=== PATIENT | female | born 1965 | race Caucasian/White ===

== ENCOUNTER 2020-05-09 13:00 | Outpatient (RCR) | payer OTHER, SELFPAY ==
--- NOTE | 2020-03-28 14:39 | MHC.PT.EP ---
[facility] [place] Office [place] Office [place] Office [address] [phone] F: [phone] F: [phone] F: [phone] F: [phone] Physical Therapy Plan of Care Date of Evaluation: 03/28/20 Date of Surgery: 12/07/2019 Diagnosis: This is a 54 yo female presenting to skilled PT with a script for low back pain Assessment: This is a 54 yo female presenting to skilled PT with a script for low back pain. She reports that she has a long history of chronic back pain and hx of scoliosis. Based on MD note and patient report she wanted a referral to PT to learn core stability exercises for mild low back pain and obesity s/p surgery for hysterectomy on december 06. When present her back pain is located R side low back and can run down the lateral aspect of the R hip. She describes her pain as achy. Functionally she is limited in bending forward and SLS. She has ordered a treadmill but has not used it yet but enjoys walking the dogs for short distances. Assessment reveals pain that ranges from a 2 to 6/10. She demos decreased lumbar ROM and joint mobility, decreased BLE strength and core strength, general posture and impaired functional tolerance with SLS and lumbar flexion. Her main goal is to improve core strength and possibly lose weight. She is a good candidate based on age, functional limitations and PMHx. Will begin HEP next session as she was over 30 mins late to [facility]. Frequency and Duration: The patient will be seen 2x/wk for 5wks Short Term Goals: I in HEP Patient will demo proper core stab without cuing from PT Halfway Goals: Patient will demo proper squatting and lifting techniques without pain Patient will improve Oswestry to normal Patient will demo normal lumbar ROM without pain Patient will demo normal BLE strength Treatment Plan: Modalities to reduce pain, spasms and effusion. Manual therapy to restore motion and function. Therapeutic exercise to improve strength and flexibility. Neuromuscular re-education for posture and balance. Therapeutic activities to return to functional activities of daily living. Please sign and return to therapist. Thank you for your referral.
--- NOTE | 2020-05-18 10:27 | MHC.PT.DC ---
[facility] [place] Office [place] Office [place] Office [address] Thong Helms [address] [phone] F: [phone] F: [phone] F: [phone] F: [phone] Physical Therapy Discharge Report Diagnosis: This is a 54 yo female presenting to skilled PT with a script for low back pain Date of Surgery: 12/07/2019 Date of Evaluation: 03/28/20 Date of Discharge: 05/18/20 Treatments to Date: 11 Cancellations to Date: 0 No Shows to Date: 0 Discharge Status: Achieved Goals Improved Function Independent with HEP Discharge Summary: Patient is I in her program. Demos good ROM and does not report pain with ther-ex program while at PT clinic. In general reports poor compliance with exercising at home but was educated on importance of self management especially for her weight loss goals. She is getting a treadmill for home and has a good HEP at this time. DC to HEP. Oswestry score was a 4. Electronically signed by: Brunilda Keene PT Please sign and return to therapist. Thank you for your referral.
== END 2020-05-18 10:29 | disposition home or self-care (01) ==
LOC: HO.PTCHIC 13:00
PROVIDERS: PCP Internal Medicine; Visit Provider Internal Medicine
DX: M54.5 Low back pain (principal)
CPT/HCPCS: 97110; 97161

== ENCOUNTER 2020-12-23 14:05 | Outpatient (REF) | payer OTHER, SELFPAY ==
[2020-12-23 14:32] LABS: MANUAL DIFF FLAG NO
[2020-12-23 14:35] LABS: Basophils Absolute Auto 0.1 X10*3/uL (0.0-0.2); Basophils Percent Auto 0.8 % (0-2); Eosinophils Absolute Auto 0.3 X10*3/uL (0.0-0.4); Eosinophils Percent Auto 3.7 % (0-4); Hematocrit 42.6 % (37-47); Hemoglobin 14.1 g/dl (12.0-16.0); Imm Gran Abs Auto 0.02 X10*3/uL (0.00-0.03); Imm Gran Pct Auto 0.3 % (0.0-0.4); Lymphocytes Absolute Auto 2.4 X10*3/uL (1.2-4.9); Lymphocytes Percent Auto 32.7 % (20-40); Mean Corpuscular HGB Conc 33.1 g/dl (31.0-35.0); Mean Corpuscular Hemoglobin 33.5 pg (27.0-33.0); Mean Corpuscular Volume 101.2 fL (80-98); Mean Platelet Volume 9.3 fL (9.4-12.3); Monocytes Absolute Auto 0.6 X10*3/uL (0.1-1.2); Monocytes Percent Auto 7.5 % (2-11); Neutrophils Absolute Auto 4.1 X10*3/uL (2.0-8.3); Platelet Count 380 X10*3/uL (160-400); Red Blood Count 4.21 X10*6/uL (4.20-5.50); Red Cell Distribution Width 12.5 % (11.0-16.0); White Blood Count 7.4 X10*3/uL (4.8-10.8)
[2020-12-23 14:58] LABS: Lithium 0.98 mmol/L (0.60-1.20)
[2020-12-23 15:03] LABS: Alanine Aminotransferase 61 U/L (0-31); Albumin Level 4.2 g/dL (3.5-5.0); Alkaline Phosphatase 73 U/L (39-117); Anion Gap 11 (12-20); Aspartate Amino Transferase 36 U/L (5-31); Bilirubin Total 0.5 mg/dL (0.0-1.0); Blood Urea Nitrogen 11 mg/dL (9-16); Calcium 9.8 mg/dL (8.4-10.2); Carbon Dioxide 26 mmol/L (22-29); Chloride 107 mmol/L (96-108); Cholesterol 196 mg/dL; Estimated Glomerular Filt Rate > 60; Glucose Fasting 96 mg/dL (60-99); HDL Cholesterol 59 mg/dL; LDL Cholesterol Calculated 114 mg/dl; Potassium 4.9 mmol/L (3.3-5.1); Sodium 139 mmol/L (135-145); Total Protein 6.7 g/dL (6.5-8.0); Triglycerides 115 mg/dL
[2020-12-23 15:23] LABS: Free T4 (Free Thyroxine) 0.87 ng/dL (0.71-1.85); Thyroid Stimulating Hormone 1.97 uIU/mL (0.32-4.0)
[2020-12-28 07:02] LABS: Lamotrigine Lamictal 2.6 mcg/mL (4.0-18.0)
== END 2020-12-23 14:06 | disposition home or self-care (01) ==
LOC: HO.LAB 14:05
PROVIDERS: Absent Provider Psychiatry & Neurology Psychiatry; PCP Internal Medicine; Visit Provider Internal Medicine
DX: E66.9 Obesity, unspecified (principal); B35.3 Tinea pedis; F31.9 Bipolar disorder, unspecified; Z51.81 Encounter for therapeutic drug level monitoring; Z79.899 Other long term (current) drug therapy
CPT/HCPCS: 36415; 80053; 80061; 80175; 80178; 84439; 84443; 85025

== ENCOUNTER 2021-01-23 14:05 | Outpatient (REF) | payer OTHER, SELFPAY ==
[2021-01-23 16:52] LABS: Alanine Aminotransferase 55 U/L (0-31); Albumin Level 4.2 g/dL (3.5-5.0); Alkaline Phosphatase 72 U/L (39-117); Aspartate Amino Transferase 29 U/L (5-31); Bilirubin Direct 0.2 mg/dL (0.0-0.5); Bilirubin Total 0.4 mg/dL (0.0-1.0); Total Protein 6.6 g/dL (6.5-8.0)
== END 2021-01-23 14:06 | disposition home or self-care (01) ==
LOC: HO.HMGCLDS 14:05
PROVIDERS: PCP Internal Medicine; Visit Provider Internal Medicine
DX: R79.89 Other specified abnormal findings of blood chemistry (principal); B35.3 Tinea pedis; E66.9 Obesity, unspecified
CPT/HCPCS: 36415; 80076; 84439; 84443

== ENCOUNTER 2021-02-27 13:31 | Outpatient (REF) | payer OTHER, SELFPAY ==
--- NOTE | ~2021-02-27 | MM_ITS ---
EXAMINATION: MM SCREENING DIGITAL BREAST TOMOSYNTHESIS, BILATERAL CLINICAL INFORMATION: Screening. Asymptomatic. The lifetime risk of breast cancer based on the Tyrer-Cuzick Model is 11%. COMPARISON: Mammography: 09/02/2018 (new baseline) TECHNIQUE: Digital breast tomosynthesis is performed in both the craniocaudal and mediolateral oblique views along with computer-aided detection (CAD). Synthesized 2D images are generated from the tomosynthesis. FINDINGS: The breasts are heterogeneously dense, which may obscure small masses (ACR BI-RADS breast composition Category c). There is diffuse fine fibronodular parenchymal pattern similar to prior exam. There is no developing density or interval mass or architectural abnormality. No abnormal calcifications. Again, there are bilateral accessory stromal markings in the axilla. Skin contours are smooth. There are no significant changes. MM/MM tomosynthesis screening BI IMPRESSION: No significant changes from prior exam. ASSESSMENT: BI-RADS 2: Benign RECOMMENDATION: Routine annual mammography screening. This patient's information was entered into a reminder system with a target due date for their next mammogram.
== END 2021-02-27 13:32 | disposition home or self-care (01) ==
LOC: HO.MAMMO 13:31
PROVIDERS: Visit Provider Internal Medicine
DX: Z12.31 Encounter for screening mammogram for malignant neoplasm of breast (principal)
CPT/HCPCS: 77063; 77067

== ENCOUNTER → 2021-04-07 09:39 | Outpatient (BNVA) | payer OTHER, SELFPAY | PROVIDERS: PCP Internal Medicine; Referring Provider Internal Medicine; Visit Provider Internal Medicine Gastroenterology | DX: R79.89 Other specified abnormal findings of blood chemistry (principal) | CPT/HCPCS: 99212 ==

== ENCOUNTER 2021-04-11 15:11 | Outpatient (REF) | payer OTHER, SELFPAY ==
[2021-04-11 16:25] LABS: MANUAL DIFF FLAG NO
[2021-04-11 16:31] LABS: Basophils Percent Auto 0.3 % (0-2); Eosinophils Absolute Auto 0.1 X10*3/uL (0.0-0.4); Eosinophils Percent Auto 0.9 % (0-4); Hematocrit 38.9 % (37.0-47.0); Hemoglobin 12.9 g/dl (12.0-16.0); Imm Gran Abs Auto 0.05 X10*3/uL (0.00-0.03); Imm Gran Pct Auto 0.4 % (0.0-0.4); Lymphocytes Absolute Auto 2.4 X10*3/uL (1.2-4.9); Mean Corpuscular HGB Conc 33.2 g/dl (31.0-35.0); Mean Corpuscular Hemoglobin 31.8 pg (27.0-33.0); Mean Corpuscular Volume 95.8 fL (80.0-98.0); Mean Platelet Volume 10.1 fL (9.4-12.3); Monocytes Absolute Auto 0.8 X10*3/uL (0.1-1.2); Monocytes Percent Auto 6.3 % (2-11); Neutrophils Absolute Auto 8.8 x10*3/uL (2.0-8.3); Neutrophils Percent Auto 72.1 % (45-73); Platelet Count 448 X10*3/uL (160-400); Red Blood Count 4.06 X10*6/uL (4.20-5.50); Red Cell Distribution Width 12.2 % (11.0-16.0); White Blood Count 12.2 X10*3/uL (4.8-10.8)
[2021-04-11 16:54] LABS: Alanine Aminotransferase 22 U/L (0-31); Alkaline Phosphatase 66 U/L (39-117); Anion Gap 12 (12-20); Aspartate Amino Transferase 15 U/L (5-31); Bilirubin Total 0.5 mg/dL (0.0-1.0); Blood Urea Nitrogen 11 mg/dL (9-16); C Reactive Protein 1.46 mg/dL (< or = 0.50); Calcium 10.1 mg/dL (8.4-10.2); Carbon Dioxide 24 mmol/L (22-29); Chloride 107 mmol/L (96-108); Estimated Glomerular Filt Rate > 60; Glucose Random 94 mg/dL (60-115); Potassium 4.9 mmol/L (3.3-5.1); Sodium 138 mmol/L (135-145); Total Protein 6.7 g/dL (6.5-8.0)
[2021-04-11 17:10] LABS: TSH reflex Free T4 2.35 uIU/mL (0.32-4.0)
[2021-04-11 17:18] LABS: Ferritin 107 ng/mL (10-250)
[2021-04-11 17:33] LABS: Folate > 20.0 ng/mL (> or = 4.0); Vitamin B12 428 pg/mL (200-900)
[2021-04-16 10:52] LABS: Gliadin Deamidated IgA Ab 1.1 U/mL; Gliadin Deamidated IgG Ab <1.0 U/mL; Transglutaminase Ab IgG <1.0 U/mL; Transglutaminase IgA <1.0 U/mL
== END 2021-04-11 15:12 | disposition home or self-care (01) ==
LOC: HO.HMGCLDS 15:11
PROVIDERS: Internal Medicine Gastroenterology; PCP Internal Medicine; Visit Provider Internal Medicine
DX: R79.89 Other specified abnormal findings of blood chemistry (principal); G89.29 Other chronic pain; R10.33 Periumbilical pain; K75.81 Nonalcoholic steatohepatitis (NASH)
CPT/HCPCS: 36415; 80053; 82607; 82728; 82746; 83516; 84443; 85025; 86140

== ENCOUNTER 2021-05-04 11:10 | Outpatient (REF) | payer OTHER, SELFPAY ==
--- NOTE | ~2021-05-04 | XR_ITS ---
EXAMINATION: XR LUMBOSACRAL SPINE CLINICAL INFORMATION: Low back pain longer than 6 months COMPARISON: None TECHNIQUE: Four views of the lumbosacral spine. FINDINGS: 5 nonrib-bearing lumbar-type vertebral bodies. No acute visible fracture or dislocation. Moderate multilevel degenerative changes greatest at L4-L5 with endplate sclerosis, disc space narrowing, osteophyte formation, and facet arthropathy. Vertebral body heights and disc spaces are otherwise maintained. Posterior elements are intact. Paraspinal soft tissues are unremarkable. Visualized bowel gas is unremarkable. Multiple rounded calcifications in the right upper quadrant abdomen possibly representing gallbladder calculi. XR/XR lumbar spine 2-3V IMPRESSION: 1. No acute visible fracture or dislocation. 2. Moderate multilevel degenerative changes greatest at L4-L5. 3. Multiple rounded calcifications in the right upper quadrant abdomen possibly representing gallbladder calculi.
== END 2021-05-04 11:11 | disposition home or self-care (01) ==
LOC: HO.XRAY 11:10
PROVIDERS: PCP Internal Medicine; Visit Provider Chiropractor
DX: M54.50 Low back pain, unspecified (principal)
CPT/HCPCS: 72100

== ENCOUNTER 2021-05-29 10:41 | Outpatient (REF) | payer OTHER, SELFPAY ==
--- NOTE | ~2021-05-29 | US_ITS ---
EXAMINATION: US COMPLETE ABDOMEN WITH LIVER ELASTOGRAPHY CLINICAL INFORMATION: Abnormal liver function tests. COMPARISON: None. TECHNIQUE: Real-time imaging of the abdominal viscera. Noninvasive ultrasound liver fibrosis assessment is performed using Hipolito ElastPQ point quantification shear wave elastography (2D-SWE) with a C5-2 MHz transducer. Multiple elastography samples are obtained. FINDINGS: PANCREAS: The visualized pancreatic head and body are normal in appearance. The tail of the pancreas is obscured from visualization by the overlying bowel gas. ABDOMINAL AORTA: The proximal, middle, and distal aortic segments are normal in caliber. INFERIOR VENA CAVA: Visualized portions are normal. LIVER: The liver demonstrates an enlarged size, contour and increased echogenicity. No focal lesion or intrahepatic biliary duct dilatation. The right lobe measures 18.0 cm in length. The left lobe measures 14.0 cm in length. Portal flow is hepatopedal Shear wave liver elastography median stiffness is 1.27 m/s (reference: normal median stiffness is 1.3 m/s or less). IQR/median stiffness to assess sampling precision is 0.24 (reference: good quality data set is IQR/median stiffness of 0.15 or less). GALLBLADDER: There are multiple echogenic mobile gallstones. No gallbladder wall thickening seen. Gallbladder wall thickness measures 0.2 cm. COMMON BILE DUCT: Normal in caliber measuring 0.4 cm in diameter. RIGHT KIDNEY: Normal. No hydronephrosis. No renal calculi or focal parenchymal lesions. The kidney measures 11.0 cm in maximum dimension. LEFT KIDNEY: Normal. No hydronephrosis. No renal calculi or focal parenchymal lesions. The kidney measures 12.0 cm in maximum dimension. SPLEEN: Normal. The spleen measures 10.0 cm in maximum dimension. FREE FLUID: None. US/US abdomen comp w elastography IMPRESSION: 1. Cholelithiasis without wall thickening. 2. Hepatic steatosis with mild hepatomegaly. 3. The rest of the abdominal ultrasound is unremarkable. 4. Liver elastography: Median liver stiffness 1.27 m/s suggestive of high probability for normal. REFERENCE: Society of Radiologists in Ultrasound Liver Stiffness Thresholds (2019): LIVER STIFFNESS THRESHOLDS: *Liver Stiffness equal or less than 1.3 m/s: High probability of being normal. *Liver Stiffness less than 1.7 m/s: In the absence of other known clinical signs, rules out compensated advanced chronic liver disease. *Liver Stiffness 1.7-2.1 m/s: Suggestive of compensated advanced chronic liver disease but need further test for confirmation. *Liver Stiffness over 2.1 m/s: Rules in compensated advanced chronic liver disease. *Liver Stiffness over 2.4 m/s: Suggestive of clinically significant portal hypertension. QUALITY OF DATA SET: *IQR/Median value equal or less than 0.15 implies a quality data set. *IQR/Median value over 0.15 implies a poor quality data set. SIGNIFICANT CHANGE FROM PRIOR EXAM: Significant change if liver stiffness measurement is 10% or greater from prior exam. OTHER CONSIDERATIONS: The stage of liver fibrosis may be overestimated in the setting of acute hepatitis, liver inflammation, elevated liver function tests, hepatic vascular congestion, obstructive cholestasis, non-fasting state, and infiltrative diseases such as amyloidosis and lymphoma. In some patients with NAFLD, the liver stiffness thresholds for compensated advanced chronic liver disease may be lower. In causes other than viral hepatitis and NAFLD, liver stiffness thresholds are not well established.
[2021-05-29 11:29] LABS: MANUAL DIFF FLAG NO
[2021-05-29 11:48] LABS: Basophils Absolute Auto 0.1 X10*3/uL (0.0-0.2); Basophils Percent Auto 0.7 % (0-2); Eosinophils Absolute Auto 0.3 X10*3/uL (0.0-0.4); Eosinophils Percent Auto 3.3 % (0-4); Hematocrit 40.9 % (37.0-47.0); Hemoglobin 13.2 g/dl (12.0-16.0); Imm Gran Abs Auto 0.03 X10*3/uL (0.00-0.03); Imm Gran Pct Auto 0.4 % (0.0-0.4); Lymphocytes Absolute Auto 2.5 X10*3/uL (1.2-4.9); Lymphocytes Percent Auto 31.9 % (20-40); Mean Corpuscular HGB Conc 32.3 g/dl (31.0-35.0); Mean Corpuscular Hemoglobin 31.2 pg (27.0-33.0); Mean Corpuscular Volume 96.7 fL (80.0-98.0); Mean Platelet Volume 9.6 fL (9.4-12.3); Monocytes Absolute Auto 0.5 X10*3/uL (0.1-1.2); Neutrophils Absolute Auto 4.4 x10*3/uL (2.0-8.3); Neutrophils Percent Auto 56.7 % (45-73); Platelet Count 385 X10*3/uL (160-400); Red Blood Count 4.23 X10*6/uL (4.20-5.50); Red Cell Distribution Width 12.2 % (11.0-16.0); White Blood Count 7.7 X10*3/uL (4.8-10.8)
[2021-05-29 12:31] LABS: Thyroid Stimulating Hormone 2.95 uIU/mL (0.32-4.0)
[2021-05-29 12:33] LABS: Alanine Aminotransferase 14 U/L (0-31); Albumin Level 4.2 g/dL (3.5-5.0); Alkaline Phosphatase 59 U/L (39-117); Aspartate Amino Transferase 14 U/L (5-31); Bilirubin Direct 0.2 mg/dL (0.0-0.5); Bilirubin Total 0.6 mg/dL (0.0-1.0); Calcium 9.9 mg/dL (8.4-10.2); Total Protein 6.6 g/dL (6.5-8.0)
[2021-05-29 12:45] LABS: Folate > 20.0 ng/mL (> or = 4.0); Vitamin B12 514 pg/mL (200-900)
[2021-06-05 06:57] LABS: Lamotrigine Lamictal 3.2 mcg/mL (4.0-18.0)
== END 2021-05-29 10:42 | disposition home or self-care (01) ==
LOC: HO.US 10:41
PROVIDERS: Psychiatry & Neurology Psychiatry; PCP Internal Medicine; Visit Provider Internal Medicine Gastroenterology
DX: R79.89 Other specified abnormal findings of blood chemistry (principal)
CPT/HCPCS: 36415; 76705; 76981; 80076; 80175; 80178; 82310; 82607; 82746; 84443; 85025

== ENCOUNTER → 2021-07-10 13:18 | Outpatient (BNVA) | payer OTHER, SELFPAY | PROVIDERS: PCP Internal Medicine; Visit Provider Internal Medicine Gastroenterology | DX: Z13.89 Encounter for screening for other disorder (principal) ==

== ENCOUNTER 2022-01-02 13:58 | Outpatient (REF) | payer OTHER, SELFPAY ==
--- NOTE | ~2022-01-02 | XR_ITS ---
EXAMINATION: XR CERVICAL SPINE SERIES XR DORSAL SPINE SERIES CLINICAL INFORMATION: Upper back pain. COMPARISON: None. TECHNIQUE: 3 views of the cervical spine. 4 views of the dorsal spine. FINDINGS: Cervical Spine: The vertebral bodies are normally aligned with normal height. Disc spaces normal. Facets normal. Surrounding bone and soft tissues unremarkable. Dorsal Spine: There is a convex right curvature/scoliosis of the dorsal spine measured at 20 degrees between T5 and T10 Vertebral bodies otherwise normally aligned. Minimal endplate osteophytes in the midportion of the dorsal spine compatible with mild multilevel spondylosis. No fracture or bone lesion. Surrounding soft tissues unremarkable. XR/XR thoracic spine 3V IMPRESSION: CERVICAL SPINE: Normal. DORSAL SPINE: Mild scoliosis. Mild spondylosis.
--- NOTE | ~2022-01-02 | XR_ITS ---
EXAMINATION: XR CERVICAL SPINE SERIES XR DORSAL SPINE SERIES CLINICAL INFORMATION: Upper back pain. COMPARISON: None. TECHNIQUE: 3 views of the cervical spine. 4 views of the dorsal spine. FINDINGS: Cervical Spine: The vertebral bodies are normally aligned with normal height. Disc spaces normal. Facets normal. Surrounding bone and soft tissues unremarkable. Dorsal Spine: There is a convex right curvature/scoliosis of the dorsal spine measured at 20 degrees between T5 and T10 Vertebral bodies otherwise normally aligned. Minimal endplate osteophytes in the midportion of the dorsal spine compatible with mild multilevel spondylosis. No fracture or bone lesion. Surrounding soft tissues unremarkable. XR/XR cervical spine 3V IMPRESSION: CERVICAL SPINE: Normal. DORSAL SPINE: Mild scoliosis. Mild spondylosis.
== END 2022-01-02 13:59 | disposition home or self-care (01) ==
LOC: HO.XRAY 13:58
PROVIDERS: Visit Provider Chiropractor
DX: M54.2 Cervicalgia (principal); M54.6 Pain in thoracic spine
CPT/HCPCS: 72040; 72072

== ENCOUNTER 2022-03-09 14:09 | Outpatient (REF) | payer OTHER, SELFPAY ==
--- NOTE | ~2022-03-09 | MM_ITS ---
EXAMINATION: MM SCREENING DIGITAL BREAST TOMOSYNTHESIS, BILATERAL CLINICAL INFORMATION: Screening. Asymptomatic. The lifetime risk of breast cancer based on the Tyrer-Cuzick Model is 9%. COMPARISON: Mammography: 02/27/2021, 09/02/2018 (new baseline) TECHNIQUE: Digital breast tomosynthesis is performed in both the craniocaudal and mediolateral oblique views along with computer-aided detection (CAD). Synthesized 2D images are generated from the tomosynthesis. FINDINGS: There are scattered areas of fibroglandular density (ACR BI-RADS breast composition Category b). Fibronodular parenchymal pattern is similar to prior studies. No significant mass or interval architectural abnormality or developing density or abnormal calcifications. The axilla and skin contours are unremarkable. No significant changes from prior studies. MM/MM tomosynthesis screening BI IMPRESSION: No mammographic evidence of malignancy. ASSESSMENT: BI-RADS 1: Negative RECOMMENDATION: Routine annual mammography screening. This patient's information was entered into a reminder system with a target due date for their next mammogram.
== END 2022-03-09 14:10 | disposition home or self-care (01) ==
LOC: HO.MAMMO 14:09
PROVIDERS: PCP Internal Medicine; Visit Provider Internal Medicine
DX: Z12.31 Encounter for screening mammogram for malignant neoplasm of breast (principal)
CPT/HCPCS: 77063; 77067

== ENCOUNTER → 2022-05-01 14:30 | Outpatient (BNVA) | payer OTHER, SELFPAY | PROVIDERS: Visit Provider Psychiatry & Neurology Psychiatry | DX: F31.74 Bipolar disorder, in full remission, most recent episode manic (principal) | CPT/HCPCS: 90833; 99212 ==

== ENCOUNTER 2022-05-23 11:22 | Outpatient (REF) | payer OTHER, SELFPAY ==
[2022-05-23 14:17] LABS: MANUAL DIFF FLAG NO
[2022-05-23 14:26] LABS: Basophils Absolute Auto 0.1 X10*3/uL (0.0-0.2); Eosinophils Absolute Auto 0.3 X10*3/uL (0.0-0.4); Eosinophils Percent Auto 3.1 % (0-4); Hematocrit 41.5 % (37.0-47.0); Hemoglobin 13.6 g/dl (12.0-16.0); Imm Gran Abs Auto 0.03 X10*3/uL (0.00-0.03); Imm Gran Pct Auto 0.3 % (0.0-0.4); Lymphocytes Absolute Auto 2.9 X10*3/uL (1.2-4.9); Lymphocytes Percent Auto 30.9 % (20-40); Mean Corpuscular HGB Conc 32.8 g/dl (31.0-35.0); Mean Corpuscular Hemoglobin 31.4 pg (27.0-33.0); Mean Corpuscular Volume 95.8 fL (80.0-98.0); Mean Platelet Volume 9.6 fL (9.4-12.3); Monocytes Absolute Auto 0.7 X10*3/uL (0.1-1.2); Monocytes Percent Auto 7.4 % (2-11); Neutrophils Absolute Auto 5.4 x10*3/uL (2.0-8.3); Neutrophils Percent Auto 57.3 % (45-73); Platelet Count 436 X10*3/uL (160-400); Red Blood Count 4.33 X10*6/uL (4.20-5.50); Red Cell Distribution Width 12.2 % (11.0-16.0); White Blood Count 9.5 X10*3/uL (4.8-10.8)
[2022-05-23 14:48] LABS: Lithium 0.83 mmol/L (0.60-1.20)
[2022-05-23 15:23] LABS: Alanine Aminotransferase 17 U/L (0-31); Albumin Level 4.2 g/dL (3.5-5.0); Alkaline Phosphatase 64 U/L (39-117); Aspartate Amino Transferase 15 U/L (5-31); Bilirubin Total 0.6 mg/dL (0.0-1.0); Blood Urea Nitrogen 12 mg/dL (9-16); Calcium 9.5 mg/dL (8.4-10.2); Cholesterol 224 mg/dL; Estimated Glomerular Filt Rate > 60; Glucose Fasting 92 mg/dL (60-99); HDL Cholesterol 53 mg/dL; LDL Cholesterol Calculated 152 mg/dl; TSH reflex Free T4 2.06 uIU/mL (0.32-4.0); Total Protein 6.5 g/dL (6.5-8.0); Triglycerides 95 mg/dL
[2022-05-23 15:50] LABS: Anion Gap 10 (12-20); Carbon Dioxide 24 mmol/L (22-29); Chloride 110 mmol/L (96-108); Potassium 4.6 mmol/L (3.3-5.1); Sodium 139 mmol/L (135-145)
[2022-05-28 21:44] LABS: Lamotrigine Lamictal 3.4 mcg/mL (4.0-18.0)
== END 2022-05-23 11:23 | disposition home or self-care (01) ==
LOC: HO.HMGCLDS 11:22
PROVIDERS: Absent Provider Psychiatry & Neurology Psychiatry; PCP Internal Medicine; Visit Provider Internal Medicine
DX: Z00.01 Encounter for general adult medical examination with abnormal findings (principal); E66.09 Other obesity due to excess calories; R79.89 Other specified abnormal findings of blood chemistry; F31.74 Bipolar disorder, in full remission, most recent episode manic
CPT/HCPCS: 36415; 80053; 80061; 80175; 80178; 84443; 85025

== ENCOUNTER → 2022-06-22 12:10 | Outpatient (BNVA) | payer OTHER, SELFPAY | PROVIDERS: PCP Internal Medicine; Visit Provider Internal Medicine Gastroenterology | DX: R79.89 Other specified abnormal findings of blood chemistry (principal); K80.20 Calculus of gallbladder without cholecystitis without obstruction; F10.90 Alcohol use, unspecified, uncomplicated | CPT/HCPCS: 99212 ==

== ENCOUNTER → 2022-09-19 17:05 | Outpatient (BNVA) | payer OTHER, SELFPAY | PROVIDERS: PCP Internal Medicine; Visit Provider Psychiatry & Neurology Psychiatry | DX: F31.74 Bipolar disorder, in full remission, most recent episode manic (principal) | CPT/HCPCS: 90833; 99212 ==

== ENCOUNTER 2023-01-09 16:08 | Outpatient (AMB) | payer OTHER, SELFPAY ==
--- NOTE | 2023-01-09 15:53 | MHC.OFFVISPS ---
Intake Intake Visit Reasons: depression Allergies No Known Allergies [No Known Allergies*] Allergy (Verified 10/16/22 15:18) HPI- Psychiatric Chief Complaint: depression HPI Narrative: pt has been doing quite well uses prayer seen in tx lithium lamictal no new medical problems the patient has helped move her father and and his to an assisted living community. Her stepmother has Parkinson's her father has early Alzheimer's the patient has done well on lithium and Lamictal feels generally content in her life remain sober no new medical concerns Past Psychiatric History: hx bipolar dx alcohol use disorder Mental Status Exam Mental Status Exam Narrative: Mental Status Exam Narrative: Appearance: Casually dressed Behavior: Cooperative appropriate psychomotor: Within normal limits Speech: Normal volume and prosody Thought proccess logical and goal-directed Thought content: Future oriented no self-harming thoughts Mood: Euthymic Affect: Appropriate to mood some flattening SI:denies HI:denies VH/AH:none Delusions: None Insight/judgment: Good insight and judgment Memory/cog: Intact Assessment and Plan Assessment & Plan (1) Bipolar 1 disorder, manic, full remission: Status: Acute Code(s): F31.74 - Bipolar disorder, in full remission, most recent episode manic Plan Check labs patient where of potential long-term stay side effects follow renal function thyroid continue lamotrigine and lithium No complaints of side effects patient with good energy mood ability to enjoy things generally content with how things are at the moment Orders: Orders Comprehensive Met. 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 Counseling provided to the patient/caregiver as outlined below. Addressed patient/caregiver concerns regarding current medication regime including effective adherence. Addressed patient/caregiver concerns regarding diagnosis and prognosis including accuracy of diagnosis, prognosis over time, impact of diagnosis. Addressed patient/caregiver concerns regarding impact of recent stressors. [facility] Medical History Bipolar 1 disorder, manic, full remission Distinct protrusion of abdomen Fungal infection of foot Obesity Surgical History H/O wisdom tooth extraction History of esophagogastroduodenoscopy (EGD) History of inguinal hernia History of melanoma Family History Father Afib Bipolar disorder Mother HTN (hypertension) Uterine cancer Other Mental health disorder Social History Housing: House Alcohol intake: current Alcohol intake frequency: a few times a month Patient Tobacco Use Status: Current everyday Tobacco user Cigarettes Per Day: 10 e-Cigarette/Vaping Use: Never Used service: No Current occupational status: unemployed Cognitive needs: No Hearing needs: No Vision needs: Yes Social History: only child mother never no children protestant Substance History: alcohol use dx severe in past Trauma History: angry bipolar father in past Coding Level of Care Code Est Pt Level 3 (50302) Therapy 30m w/E&M (93489) Diagnoses Bipolar 1 disorder, manic, full remission F31.74
== END 2023-01-09 16:10 | disposition home or self-care (01) ==
LOC: HO.HOP 16:08
PROVIDERS: PCP Internal Medicine; Visit Provider Psychiatry & Neurology Psychiatry
DX: F31.74 Bipolar disorder, in full remission, most recent episode manic (principal)
CPT/HCPCS: 90833; 99213

== ENCOUNTER → 2023-01-09 16:08 | Outpatient (BNVA) | payer OTHER, SELFPAY | PROVIDERS: PCP Internal Medicine; Visit Provider Psychiatry & Neurology Psychiatry | DX: F31.74 Bipolar disorder, in full remission, most recent episode manic (principal) ==

== ENCOUNTER 2023-02-13 12:54 | Outpatient (REF) | payer OTHER, SELFPAY ==
[2023-02-13 16:26] LABS: MANUAL DIFF FLAG NO
[2023-02-13 16:34] LABS: Basophils Absolute Auto 0.1 X10*3/uL (0.0-0.2); Basophils Percent Auto 0.8 % (0-2); Eosinophils Absolute Auto 0.3 X10*3/uL (0.0-0.4); Eosinophils Percent Auto 2.4 % (0-4); Hemoglobin 13.1 g/dl (12.0-16.0); Imm Gran Abs Auto 0.04 X10*3/uL (0.00-0.03); Imm Gran Pct Auto 0.4 % (0.0-0.4); Lymphocytes Absolute Auto 3.1 X10*3/uL (1.2-4.9); Lymphocytes Percent Auto 29.2 % (20-40); Mean Corpuscular HGB Conc 32.8 g/dl (31.0-35.0); Mean Corpuscular Hemoglobin 30.9 pg (27.0-33.0); Mean Corpuscular Volume 94.3 fL (80.0-98.0); Mean Platelet Volume 9.6 fL (9.4-12.3); Monocytes Absolute Auto 0.8 X10*3/uL (0.1-1.2); Neutrophils Absolute Auto 6.4 x10*3/uL (2.0-8.3); Neutrophils Percent Auto 60.2 % (45-73); Platelet Count 413 X10*3/uL (160-400); Red Blood Count 4.24 X10*6/uL (4.20-5.50); Red Cell Distribution Width 12.7 % (11.0-16.0); White Blood Count 10.7 X10*3/uL (4.8-10.8)
[2023-02-13 16:54] LABS: Alanine Aminotransferase 15 U/L (0-31); Albumin Level 4.2 g/dL (3.5-5.0); Alkaline Phosphatase 61 U/L (39-117); Aspartate Amino Transferase 14 U/L (5-31); Bilirubin Total 0.3 mg/dL (0.0-1.0); Calcium 10.1 mg/dL (8.4-10.2); Carbon Dioxide 21 mmol/L (22-29); Chloride 108 mmol/L (96-108); Estimated Glomerular Filt Rate > 60; Glucose Random 123 mg/dL (60-115); Potassium 4.3 mmol/L (3.3-5.1); Sodium 137 mmol/L (135-145); Total Protein 6.8 g/dL (6.5-8.0)
[2023-02-13 17:02] LABS: Lithium 0.81 mmol/L (0.60-1.20)
[2023-02-13 17:14] LABS: Anion Gap 12 (12-20); Valproate < 12.5 mcg/mL (50.0-100.0)
[2023-02-13 17:51] LABS: Blood Urea Nitrogen 15 mg/dL (9-16)
== END 2023-02-13 12:55 | disposition home or self-care (01) ==
LOC: HO.HMGCLDS 12:54
PROVIDERS: PCP Internal Medicine; Visit Provider Psychiatry & Neurology Psychiatry
DX: F31.74 Bipolar disorder, in full remission, most recent episode manic (principal); Z79.899 Other long term (current) drug therapy
CPT/HCPCS: 36415; 80053; 80164; 80178; 84443; 85025

== ENCOUNTER 2023-02-26 10:48 | Outpatient (REF) | payer OTHER, SELFPAY ==
[2023-02-27 09:59] LABS: BV Int Neg Control Negative (Negative); BV Int Pos Control Positive (Positive)
== END 2023-02-26 10:49 | disposition home or self-care (01) ==
LOC: HO.LAB 10:48
PROVIDERS: PCP Internal Medicine; Visit Provider Advanced Practice Midwife
DX: N89.8 Other specified noninflammatory disorders of vagina (principal); Z98.890 Other specified postprocedural states; Z85.828 Personal history of other malignant neoplasm of skin
CPT/HCPCS: 87480; 87510; 87660

== ENCOUNTER 2023-02-26 10:50 | Outpatient (AMB) | payer OTHER, SELFPAY ==
--- NOTE | 2023-02-26 10:50 | A.OFFVIS_ITS ---
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 She is doing well with some concerns. She has some occasional feelings of warmth at night, but denies any hot flashes. She complains of some possible skin tags about her vagina. She says this is irritated by her underwear at times, or with toilet paper. She has a hx of skin cancer on her nose and was concerned about this. She follows with Dr. Ring, who is her Certified Professional Ergonomist Attempting to eat a healthy diet with calcium and vitamin D and stays active walking her dog several times daily. She used to take Calcium supplements, but had to stop due to her [place] medication. She has a hx of hysterectomy in 12/09 due to Fibroids Denies any vaginal dryness or irritation. She complains of some occasional vaginal itchiness Last pap smear from 07/2018, was negative. Last Mammogram done 03/09/22, normal. Colonoscopy is UTD. Denies any family history of breast, ovarian or colon cancer. She has a hx of Bipolar I, currently in remission, ETOH, and is a smoker. Father has hx of Alzheimer's & Bipolar. [facility] Medical History Bipolar 1 disorder, manic, full remission Obesity Fungal infection of foot Distinct protrusion of abdomen Surgical History H/O: hysterectomy History of esophagogastroduodenoscopy (EGD) H/O wisdom tooth extraction History of melanoma History of inguinal hernia Family History Father Afib Bipolar disorder Mother HTN (hypertension) Uterine cancer Other Mental health disorder Social History Housing: House Alcohol intake: former Patient Tobacco Use Status: Current everyday Tobacco user Cigarettes Per Day: 10 e-Cigarette/Vaping Use: Never Used service: No Current occupational status: unemployed Sexual orientation: Straight/Heterosexual Cognitive needs: No Hearing needs: No Vision needs: Yes Female Reproductive History Menstrual Menopause type: surgical Total pregnancies: 0 Date of last pap smear: 08/19/18 (neg pap and hpv) Date of Mammogram: 03/09/22 (Birad 1) Review of Systems Const All systems reviewed & are unremarkable except as noted in HPI and below Reports as per HPI Eyes Reports no additional complaints ENT Reports no additional complaints Card Reports no additional complaints Resp Reports no additional complaints GI Reports as per HPI and Reports no additional complaints Reports as per HPI Musc Reports no additional complaints Skin/Breast Reports as per HPI Neuro Reports no additional complaints Psych Reports no additional complaints Endo Reports no additional complaints Shreyas/Lymph Reports no additional complaints Aller/Immun Reports no additional complaints Physical Exam Vital Signs: Last Vital Signs BP 102/68 02/26/23 10:52 BMI result Body Mass Index 29.1 Const General: cooperative, healthy appearing, no acute distress, well developed and alert Orientation/consciousness: patient oriented x3 HEENT Head: Yes normal to inspection Eyes General: appearance normal, both eyes and all related structures Neck Neck: Yes normal visual inspection Thyroid: Thyroid normal Chest Other: Prominent bilateral symmetrical axilla pads Chest palpation & inspection: normal inspection of the chest and other (no puckering, dimpling, peau de orange, retraction, discharge, masses) Breast/axilla inspection: normal inspection of the breasts and abnormal inspection of the axilla Breast/axilla palpation: normal palpation of the breasts Resp Effort & Inspection: normal respiratory effort GI Inspection: Yes normal to inspection Palpation (GI): Soft to palpation Rectal Exam - Female: deferred Other: Hx of hysterectomy due to Fibroids Hypopigmentation of labia minor bilaterally, lichen changes A few small scattered skin tags General: Yes bladder normal to palpation External Female Exam: No normal external appearance and normal appearance of the urethra Speculum Exam - Vagina: normal appearance of the vagina, normal palpation and normal vaginal discharge Speculum Exam - Cervix: normal appearance of the cervix, normal palpation and Cervix absent (Vag cuff, no lesions or nodules) Bimanual exam- vagina & uterus: normal bimanual exam, normal palpation, bladder normal to palpation, normal palpation and uterus absent Bimanual Exam- Adnexa, other: no masses Skin General skin exam: no rashes or lesions noted Rashes: no rashes Neuro General: patient oriented x3 Cognition (Neuro): normal cognition Extrem General: Yes normal to inspection Psych Attitude: cooperative Thought process: Normal thought process present Assessment & Plan Assessment & Plan (1) Encounter for annual routine gynecological examination: Code(s): Z01.419 - Encounter for gynecological examination (general) (routine) without abnormal findings Plan: Discussed: Breast awareness, periodic self breast exams and yearly mammogram. Maintain a healthy lifestyle, well balanced diet including Calcium 1,200 mg and Vitamin D 600 IU daily, and routine exercise. Contact the office with any postmenopausal bleeding. Sign up for the patient portal if not already enrolled. All of her questions and concerns were addressed to the best of my ability. RTO in 1 year for annual senior production planner exam. (2) Vaginal itching: Code(s): N89.8 - Other specified noninflammatory disorders of vagina Plan: BV testing ordered Possible Lichen sclerosus Discussed shave biopsy procedure for diagnostic purposes Will follow up for labwork review & shave biopsy procedure (3) History of basal cell carcinoma (BCC) excision: Comment: X3 of nose, done by Dr. Ring Code(s): Z98.890 - Other specified postprocedural states; Z85.828 - Personal history of other malignant neoplasm of skin Orders: Orders MM tomosynthesis screening BI Today Z12.31 - Encounter for screening mammogram for malignant neoplasm of breast Bacterial Vaginosis Panel Today N89.8 - Other specified noninflammatory disorders of vagina Coding Level of Care Code New Pt Prev Care 40-64y(07719) Diagnoses Encounter for annual routine gynecological examination Z01.419 Vaginal itching N89.8 History of basal cell carcinoma (BCC) excision Z98.890; Z85.828
[2023-02-26 10:52] VITALS: BP 102/68; BMI 29.1
== END 2023-02-26 11:36 | disposition home or self-care (01) ==
PROVIDERS: PCP Internal Medicine; Visit Provider Advanced Practice Midwife
DX: Z01.419 Encounter for gynecological examination (general) (routine) without abnormal findings (principal); N89.8 Other specified noninflammatory disorders of vagina; Z98.890 Other specified postprocedural states; Z85.828 Personal history of other malignant neoplasm of skin
CPT/HCPCS: 99386

== ENCOUNTER 2023-03-08 15:31 | Outpatient (AMB) | payer OTHER, SELFPAY ==
--- NOTE | 2023-03-08 14:51 | A.OFFPC_ITS ---
Vital Signs 03/08/23 14:52 Height 5 ft 9 in Weight 199 lb BMI 29.4 BP 118/70 Blood Pressure Location Rt brachial Position Sitting Pulse 88 Pulse Source Pulse Oximeter Pulse Oximetry (%) 99 Oxygen Delivery Method Room Air Intake Visit Reasons: Annual PE Allergies No Known Allergies [No Known Allergies*] Allergy (Verified 03/08/23 14:51) Medication List - Last Reconciled 03/08/23 by Ian Jnuior MD lamotrigine 200 mg PO DAILY lithium carbonate 900 mg (3 x 300 mg) PO DAILY 3 months omeprazole 20 mg PO DAILY 30 days Tobacco use date assessed: 03/08/23 Dental Screening Dental Screen Date: 03/08/23 Did you have a dental visit in the last 12 months?: Yes Did you have a dental problem in the last 6 months where you did not have access to dental care?: No Was dental information given to patient?: Patient has dentist HPI Annual PE HPI Details Patient is a 57-year-old female came in today for physical examination Mammogram is due Colonoscopy through [facility] Pap smear: History of complete hysterectomy Breast exam through OBGYN Smoking 10-15 cigarettes daily , instructed patient to stop as soon as possible and if she needs any assistance she is to get back to me I am ordering pulmonary function test for her as she is complaining of feeling short of breath going up hill Psychiatric treatment through Dr. Espinoza , patient have bipolar disorder dyspepsia stable She is overweight and is trying to lose weight Labs recently reviewed with the patient her Platlets are elevated, which fluctuate PFSH Medical History Bipolar 1 disorder, manic, full remission Obesity Fungal infection of foot Distinct protrusion of abdomen Surgical History H/O: hysterectomy History of esophagogastroduodenoscopy (EGD) H/O wisdom tooth extraction History of melanoma History of inguinal hernia Family History Father Afib Bipolar disorder Mother HTN (hypertension) Uterine cancer Other Mental health disorder Social History Housing: House Alcohol intake: former Patient Tobacco Use Status: Current everyday Tobacco user Cigarettes Per Day: 10 e-Cigarette/Vaping Use: Never Used service: No Current occupational status: unemployed Sexual orientation: Straight/Heterosexual Cognitive needs: No Hearing needs: No Vision needs: Yes Questionnaire PHQ-9 Over the last 2 weeks, how often have you been bothered by any of the following problems? 1. Little interest or pleasure in doing things: not at all 2. Feeling down, depressed, or hopeless: several days 3. Trouble falling or staying asleep, or sleeping too much: not at all 4. Feeling tired or having little energy: several days 5. Poor appetite or overeating: not at all 6. Feeling bad about yourself - or that you are a failure or have let yourself or your family down: several days 7. Trouble concentrating on things, such as reading the newspaper or watching television: not at all 8. Moving or speaking so slowly that other people could have noticed. Or the opposite - being so fidgety or restless that you have been moving around a lot more than usual: not at all 9. Thoughts that you would be better off or of hurting yourself in some way: not at all Total score: 3 Depression Screening Interpretation: Negative Depression Screening Done: Yes 59746 - PHQ-9 Billing: Yes Source: Developed by Drs. Deondre Riley, Yaw Arthur and colleagues, with an educational windy from [employer]. Thrive Questionnaire Date Thrive assessed: 06/13/22 AUDIT C Alcohol Use Questionnaire (AUDIT-C) 1. How often do you have a drink containing alcohol?: Never 3. How often do you have six or more drinks on one occasion?: Never Total Score: 0 Score Reviewed/Action Taken: Yes MAICOL-7 AMB Questionnaire MAICOL-7 Date MAICOL - 7 assessed: 06/13/22 Source: Developed by Drs. Deondre Riley, Yaw Arthur and colleagues, with an educational windy from [employer]. Review of Systems Const Denies chills, Denies fever(s) and Denies headache(s) Eyes Denies blurry vision ENT Denies headache(s), Denies nasal discharge, Denies nasal obstruction, Denies odynophagia and Denies sinus pain Card Denies chest pain at rest and Denies chest pain with activity Resp Denies cough and Denies hemoptysis GI Denies diarrhea, Denies odynophagia, Denies vomiting and Denies hematemesis Reports as per HPI Musc Denies abnormal gait Skin/Breast Reports as per HPI Neuro Denies Neuro-related abnormal movements, Denies Abnormal speech present, Denies abnormal gait, Denies headache(s) and Denies Sensory deficit (Neuro) Psych Denies mood swings and Denies paranoia Endo Reports as per HPI Shreyas/Lymph Reports as per HPI Aller/Immun Reports as per HPI Physical exam (Primary Care) Vital Signs: Last Vital Signs Pulse 88 03/08/23 14:52 BP 118/70 03/08/23 14:52 Pulse Ox 99 03/08/23 14:52 Oxygen Delivery Method Room Air 03/08/23 14:52 BMI result Body Mass Index 29.4 Tobacco/Smoking Status: Tobacco use Status Tobacco use date assessed 03/08/23 03/08/23 14:52 Patient Tobacco Use Status Current everyday Tobacco 03/08/23 14:52 e-Cigarette/Vaping Use Never Used 03/08/23 14:52 Tobacco cessation counseling provided: Yes CPT code: 09770 - 4-10 Minutes Depression Screening Interpretation: Negative Thrive Assessment: Date of Thrive Assessment Date Thrive assessed 06/13/22 03/08/23 14:52 Const General: cooperative, comfortable and no acute distress Orientation/consciousness: patient oriented x3 HENMT Head: Yes normocephalic and Yes atraumatic Eyes General: appearance normal, both eyes and all related structures Pupils: Equal, round and reactive pupils present EOM: EOMs intact bilaterally Neck Neck: Yes supple and No lymphadenopathy Thyroid: Thyroid normal Lymphatic: no lymphadenopathy noted Resp Effort & Inspection: normal respiratory effort and able to speak in complete sentences Auscultation: clear to auscultation bilaterally Cardio Heart sounds: S1 normal heart sound present and S2 normal heart sound present GI Palpation (GI): Soft to palpation and nontender Auscultation: normal bowel sounds General: Yes no CVA tenderness Back/Spine/Pelvis Back: no CVA tenderness Skin General skin exam: elasticity normal and turgor normal Neuro General: patient oriented x3 and gait normal Cranial nerves: Yes Equal, round and reactive pupils present Speech: No Abnormal speech present Sensory Exam: No Sensory deficit (Neuro) Coordination: tandem gait normal and Romberg test negative Extrem General: Yes normal exam except as noted and No edema Assessment and Plan Assessment & Plan (1) Encounter for general adult medical examination with abnormal findings: Code(s): Z00.01 - Encounter for general adult medical examination with abnormal findings (2) Chronic GERD: Code(s): K21.9 - Gastro-esophageal reflux disease without esophagitis (3) Bipolar 1 disorder, manic, full remission: Code(s): F31.74 - Bipolar disorder, in full remission, most recent episode manic (4) Tobacco use disorder: Code(s): F17.200 - Nicotine dependence, unspecified, uncomplicated (5) Tobacco abuse counseling: Code(s): Z71.6 - Tobacco abuse counseling (6) Shortness of breath: Code(s): R06.02 - Shortness of breath Plan Patient is a 57-year-old female came in today for physical examination Mammogram is due Colonoscopy through [facility] Pap smear: History of complete hysterectomy Breast exam through OBGYN Smoking 10-15 cigarettes daily , instructed patient to stop as soon as possible and if she needs any assistance she is to get back to me I am ordering pulmonary function test for her as she is complaining of feeling short of breath going [place] Psychiatric treatment through Dr. Espinoza , patient have bipolar disorder dyspepsia stable She is overweight and is trying to lose weight Labs recently reviewed with the patient her Platlets are elevated, which fluctuate Orders: Orders PFT pulmonary function test Today F17.200 - Nicotine dependence, unspecified, uncomplicated, R06.02 - Shortness of breath Coding Level of Care Code Est Pt Prev Care 40-64y(51102) Diagnoses Encounter for general adult medical examination with abnormal findings Z00.01 Chronic GERD K21.9 Bipolar 1 disorder, manic, full remission F31.74 Tobacco use disorder F17.200 Tobacco abuse counseling Z71.6 Shortness of breath R06.02 Additional Codes Vital Signs *Quality* - CPT code: 38768 - 4-10 Minutes ([id number])
[2023-03-08 14:52] VITALS: BP 118/70; PULSE 88; O2SAT 99; BMI 29.4
== END 2023-03-08 17:08 | disposition home or self-care (01) ==
PROVIDERS: PCP Internal Medicine; Visit Provider Internal Medicine
DX: Z00.00 Encounter for general adult medical examination without abnormal findings (principal); K21.9 Gastro-esophageal reflux disease without esophagitis; F31.74 Bipolar disorder, in full remission, most recent episode manic; F17.200 Nicotine dependence, unspecified, uncomplicated; Z71.6 Tobacco abuse counseling; R06.02 Shortness of breath
CPT/HCPCS: 99396

== ENCOUNTER 2023-03-28 15:44 | Outpatient (REF) | payer OTHER, SELFPAY ==
--- NOTE | ~2023-03-28 | MM_ITS ---
EXAMINATION: MM SCREENING DIGITAL BREAST TOMOSYNTHESIS, BILATERAL CLINICAL INFORMATION: Screening. Asymptomatic. COMPARISON: Mammography: 03/09/2022, 02/27/2021, 09/02/2018 (new baseline) TECHNIQUE: Digital breast tomosynthesis is performed in both the craniocaudal and mediolateral oblique views along with computer-aided detection (CAD). Synthesized 2D images are generated from the tomosynthesis. FINDINGS: The breasts are heterogeneously dense, which may obscure small masses (ACR BI-RADS breast composition Category c). In the left breast, there is a focal asymmetry in the anterior medial and inferior aspect, which should be evaluated with diagnostic views including 3-D spot compression left CC, 3-D spot compression left MLO, and 90 degree full-field left 3-D view. Suspicious findings in the right breast. The parenchymal pattern is stable from priors. MM/MM tomosynthesis screening BI IMPRESSION: Focal asymmetry left breast, please evaluate with diagnostic views as detailed above. No suspicious findings right breast. ASSESSMENT: BI-RADS BI-RADS 0 - Incomplete: Needs additional Imaging. RECOMMENDATION: 1. Additional views of the left breast 2. Targeted ultrasound if warranted after review of the additional views. 3. Radiology department staff will contact the patient for additional imaging. Additional Imaging required
== END 2023-03-28 15:45 | disposition home or self-care (01) ==
LOC: HO.MAMMO 15:44
PROVIDERS: PCP Internal Medicine; Visit Provider Advanced Practice Midwife
DX: Z12.31 Encounter for screening mammogram for malignant neoplasm of breast (principal)
CPT/HCPCS: 77063; 77067

== ENCOUNTER → 2023-03-28 15:45 | Outpatient (BNV) | payer OTHER, SELFPAY | PROVIDERS: PCP Internal Medicine; Visit Provider Radiology Diagnostic Radiology | DX: Z12.31 Encounter for screening mammogram for malignant neoplasm of breast (principal) | CPT/HCPCS: 77063; 77067 ==

== ENCOUNTER → 2023-04-05 15:15 | Outpatient (BNVA) | payer OTHER, SELFPAY | PROVIDERS: PCP Internal Medicine; Visit Provider Advanced Practice Midwife ==

== ENCOUNTER 2023-04-11 14:53 | Outpatient (REF) | payer OTHER, SELFPAY ==
--- NOTE | 2023-04-11 15:32 | PFT_ITS ---
Spirometry [] FVC 87%, FEV1 81%, FEV1/FVC RATIO 74 FEF 25-75 68% AND MVV IS 79% POST BRONCHODILATOR CHALLENGE THERE IS SLIGHT IMPROVEMENT IN FEF 25-75 AND FEV1 Lung Volumes [] TOTAL LUNG CAPACITY AND RESIDUAL VOLUME ARE DESCRIBED MARKEDLY INCREASED THIS IS PROBABLY DUE TO TECHNICAL ERROR . Diffusion Capacity [] DLCO 83% DL/VA 100% Methacholine Challenge [] Flow Volume Loops []NORMAL PATTERN MVV [] MIP/MEP(Max inspiratory pressure/Max expiratory pressure) [] 6 Minute Walk Test [] ABG [] Interpretation [] THERE IS EVIDENCE OF MILD SMALL AIRWAY OBSTRUCTIVE DISORDER WHICH RESPONDS WELL TO BRONCHODILATOR THERAPY. THIS FINDING MAY BE INDICATED OF OF A MILD BRONCHIAL ASTHMA, CLINICAL CORRELATION RECOMMENDED. MTDD
== END 2023-04-11 14:54 | disposition home or self-care (01) ==
LOC: HO.RESP 14:53
PROVIDERS: PCP Internal Medicine; Visit Provider Internal Medicine
DX: R06.02 Shortness of breath (principal); F17.200 Nicotine dependence, unspecified, uncomplicated
CPT/HCPCS: 94010; 94727; 94729

== ENCOUNTER → 2023-04-11 15:32 | Outpatient (BNV) | payer OTHER, SELFPAY | PROVIDERS: PCP Internal Medicine; Visit Provider Internal Medicine | DX: R06.02 Shortness of breath (principal); F17.210 Nicotine dependence, cigarettes, uncomplicated | CPT/HCPCS: 94060; 94727; 94729 ==

== ENCOUNTER → 2023-04-12 08:30 | Outpatient (BNV) | payer OTHER, SELFPAY | PROVIDERS: PCP Internal Medicine; Visit Provider Radiology Diagnostic Radiology | DX: R92.8 Other abnormal and inconclusive findings on diagnostic imaging of breast (principal) | CPT/HCPCS: 77061; 77065 ==

== ENCOUNTER 2023-04-12 08:33 | Outpatient (REF) | payer OTHER, SELFPAY ==
--- NOTE | ~2023-04-12 | MM_ITS ---
EXAMINATION: MM DIAGNOSTIC DIGITAL BREAST TOMOSYNTHESIS, LEFT CLINICAL INFORMATION: Focal asymmetry left breast anterior medial and inferior aspect. COMPARISON: Mammography: 03/28/2023, 03/09/2022, 02/27/2021. TECHNIQUE: Digital breast tomosynthesis is performed. 2D images are generated from the tomosynthesis. The following views are obtained: Full-field 3-D left MLO view, as well as 3-D spot compression views in CC and MLO projections. FINDINGS: There are scattered areas of fibroglandular density (ACR BI-RADS breast composition Category b). Diagnostic views demonstrate no persistent abnormality. The small asymmetry effaces on spot compression views. There are no suspicious masses, suspicious grouped calcifications, or areas of architectural distortion in either breast. The parenchymal pattern is stable from prior exams. MM/MM tomosynthesis added views L IMPRESSION: No persistent findings suspicious for malignancy. Recommend the patient return to routine annual screening. ASSESSMENT: BI-RADS BI-RADS 1 - Negative RECOMMENDATION: 1 year F/U Results were provided to the patient at time of visit by the technologist. This patient's information was entered into a reminder system with a target due date for their next mammogram.
== END 2023-04-12 08:34 | disposition home or self-care (01) ==
LOC: HO.MAMMO 08:33
PROVIDERS: PCP Internal Medicine; Visit Provider Advanced Practice Midwife
DX: N64.89 Other specified disorders of breast (principal)
CPT/HCPCS: 77061; 77065

== ENCOUNTER 2023-05-02 15:56 | Outpatient (REF) | payer OTHER, SELFPAY | END 2023-05-02 15:57 | disposition home or self-care (01) | LOC: HO.LNP 15:56 | PROVIDERS: PCP Internal Medicine; Visit Provider Obstetrics & Gynecology | DX: N90.89 Other specified noninflammatory disorders of vulva and perineum (principal) | CPT/HCPCS: 11200; 56605; 56606; 88305; 88312 ==

== ENCOUNTER 2023-05-02 15:56 | Outpatient (AMB) | payer OTHER, SELFPAY ==
--- NOTE | 2023-05-02 16:01 | A.OFFVIS_ITS ---
Intake Vital Signs 05/02/23 16:14 Height 5 ft 9 in Weight 198 lb 6.656 oz BMI 29.3 BP 110/72 Intake Visit Reasons: vulva biopsy Allergies No Known Allergies [No Known Allergies*] Allergy (Verified 04/05/23 15:32) HPI HPI Comments History of Present Illness Details Presenting referred from Agnes Stephens CNM regarding multiple vulvar lesions PFSH Medical History Bipolar 1 disorder, manic, full remission Obesity Fungal infection of foot Distinct protrusion of abdomen Surgical History H/O: hysterectomy History of esophagogastroduodenoscopy (EGD) H/O wisdom tooth extraction History of melanoma History of inguinal hernia Family History Father Afib Bipolar disorder Mother HTN (hypertension) Uterine cancer Other Mental health disorder Social History Housing: House Alcohol intake: former Patient Tobacco Use Status: Current everyday Tobacco user Cigarettes Per Day: 10 e-Cigarette/Vaping Use: Never Used service: No Current occupational status: unemployed Sexual orientation: Straight/Heterosexual Cognitive needs: No Hearing needs: No Vision needs: Yes Physical Exam External Female Exam: other (Right periclitoral leukoplakia Left periclitoral dark lesion Left labia clem) Office Procedures OFFICE AUTOMATION TECHNICIAN Biopsy Before the procedure was started d/w patient the procedure, alternatives ( do nothing, medical rx), & all the risks associated with the procedure ( bleeding , infection, vulvar scarring, painful intercourse, injury to vessels, possible need for transfusion with all its risks) then patient signed the consent. Preop dx: Right periclitoral leukoplakia, Left periclitoral dark lesion & Left labia majora skin tags x2 Op: Biopsy of Right periclitoral leukoplakia and Left periclitoral dark lesion & excision of Left labia majora skin tags x2 Post op: Same Anesthesia: Lidocaine 1% 3cc used Procedure: Using betadine the area was scrubbed and draped in the usual manner. 3 cc of lidocaine was used for anesthesia at the Right periclitoral leukoplakia, Left periclitoral dark lesion & Left labia majora skin tags x2 ; using scissors and pickup the left labia majora 2 skin tags were excised then attention was turned to the right periclitoral leukoplakia and left periclitoral dark lesion which were biopsied with a punch biopsy forceps. Pressure was used for hemostasis. The patient tolerated the procedure well. Discharge Instructions: The patient was instructed to schedule an appointment in 2 weeks for follow-up and to call if temp>100.4, area of the biopsy redness or pain, nausea/vomiting. This note was generated with a voice recognition program. Some errors may have been overlooked during the review of this note. Sometimes these errors may affect the content or meaning of a given sentence. [id number]-Zssmvz of Vulva/Perineum 06948-Kxnqco of Vulva/Perineum, additional site Procedure code (CPT) selection complete Assessment & Plan Assessment & Plan (1) Vulvar lesion: Comment: Right periclitoral leukoplakia, Left periclitoral dark lesion & Left labia majora skin tags x2 Code(s): N90.89 - Other specified noninflammatory disorders of vulva and perineum Plan: Recommended biopsy of the Right periclitoral leukoplakia, Left periclitoral dark lesion and Left labia majora skin tags x2 Orders: Orders AMB OFFICE AUTOMATION TECHNICIAN Biopsy Today N90.89 - Other specified noninflammatory disorders of vulva and perineum Coding Level of Care Code Procedure Only Diagnoses Vulvar lesion N90.89 CPT Codes OFFICE AUTOMATION TECHNICIAN Biopsy - CPT: 02944-Hdafvm of Vulva/Perineum ([id number]) OFFICE AUTOMATION TECHNICIAN Biopsy - CPT: 97463-Xibakm of Vulva/Perineum, additional site ([id number])
[2023-05-02 16:14] VITALS: BP 110/72; BMI 29.3
== END 2023-05-02 17:39 | disposition home or self-care (01) ==
LOC: HO.HWS 15:56
PROVIDERS: PCP Internal Medicine; Visit Provider Obstetrics & Gynecology
DX: N90.89 Other specified noninflammatory disorders of vulva and perineum (principal)
CPT/HCPCS: 11200; 56605; 56606

== ENCOUNTER 2023-05-20 10:48 | Outpatient (AMB) | payer OTHER, SELFPAY ==
--- NOTE | 2023-05-20 10:51 | MHC.OFFVIS ---
Intake Vital Signs 05/20/23 10:52 Height 5 ft 9 in Weight 198 lb 6.656 oz BMI 29.3 BP 112/76 Intake Visit Reasons: Biopsy results Allergies No Known Allergies [No Known Allergies*] Allergy (Verified 04/05/23 15:32) HPI HPI Comments History of Present Illness Details Presenting for follow-up after vulvar biopsies , doing well with no complaints. The pathology showed the following: A. Vulva, right periclitoral lesion, biopsy: Lichen sclerosus with chronic inflammation; no atypia or fungi identified. B. Vulva, left lower labia majora skin tag, biopsy: Skin/squamous mucosa with mild chronic inflammation; no atypia or fungi identified. C. Vulva, left upper labia majora skin tag, biopsy: Fibroepithelial polyp; no atypia identified. D. Vulva, left periclitoral dark lesion, biopsy: Lichen sclerosus with chronic inflammation; no atypia or fungi identified PFSH Medical History Bipolar 1 disorder, manic, full remission Obesity Fungal infection of foot Distinct protrusion of abdomen Surgical History H/O: hysterectomy History of esophagogastroduodenoscopy (EGD) H/O wisdom tooth extraction History of melanoma History of inguinal hernia Family History Father Afib Bipolar disorder Mother HTN (hypertension) Uterine cancer Other Mental health disorder Social History Housing: House Alcohol intake: former Patient Tobacco Use Status: Current everyday Tobacco user Cigarettes Per Day: 10 e-Cigarette/Vaping Use: Never Used service: No Current occupational status: unemployed Sexual orientation: Straight/Heterosexual Cognitive needs: No Hearing needs: No Vision needs: Yes Review of Systems Const All systems reviewed & are unremarkable except as noted in HPI and below Reports as per HPI and Reports no additional complaints GI Reports no additional complaints Reports no additional complaints Physical Exam Vital Signs: Last Vital Signs BP 112/76 05/20/23 10:52 BMI result Body Mass Index 29.3 Assessment & Plan Assessment & Plan (1) Lichen sclerosus: Code(s): L90.0 - Lichen sclerosus et atrophicus Plan: Discussed with the patient the pathology results showing lichen sclerosis. Explained to the patient that Lichen sclerosus refers to a benign, chronic, progressive dermatologic condition characterized by marked inflammation, epithelial thinning accompanied by pruritus and pain. In addition, discussed with the patient that there is a small increased risk of squamous cell cancer of the vulva in patients with lichen sclerosus. Adequate treatment of the disease seems to be associated with a reduced risk of development of neoplasia. Instructed the patient to schedule an appointment in a year to examine the affected area, with possible biopsy of suspicious lesions, in addition explained to the patient that she should look at the skin of the affected area and touch with fingertips monthly to search for thickened lumps or sores that do not heal & to report such findings for inspection & possible biopsy to rule out vulvar cancer Will prescribe Clobetasol propionate 0.05% ointment to be applied daily at night for 6 to 12 weeks, followed by maintenance therapy two to three times per week . Medications: New clobetasol 0.05% Then maintenance therapy for 2-3 times per week 1 appl topical BID 2 weeks 45 grams 1RF Coding Level of Care Code Est Pt Level 3 (90168) Diagnoses Lichen sclerosus L90.0
[2023-05-20 10:52] VITALS: BP 112/76; BMI 29.3
== END 2023-05-20 11:19 | disposition home or self-care (01) ==
LOC: HO.HWS 10:48
PROVIDERS: PCP Internal Medicine; Visit Provider Obstetrics & Gynecology
DX: L90.0 Lichen sclerosus et atrophicus (principal)
CPT/HCPCS: 99213

== ENCOUNTER → 2023-05-20 10:48 | Outpatient (BNVA) | payer OTHER, SELFPAY | PROVIDERS: PCP Internal Medicine; Visit Provider Obstetrics & Gynecology ==

== ENCOUNTER 2023-07-18 12:12 | Outpatient (REF) | payer OTHER, SELFPAY ==
[2023-07-18 14:18] LABS: Lithium 0.73 mmol/L (0.60-1.20)
[2023-07-18 14:33] LABS: Alanine Aminotransferase 27 U/L (0-31); Albumin Level 4.4 g/dL (3.5-5.0); Alkaline Phosphatase 60 U/L (39-117); Anion Gap 13 (12-20); Aspartate Amino Transferase 17 U/L (5-31); Bilirubin Total 0.4 mg/dL (0.0-1.0); Blood Urea Nitrogen 16 mg/dL (9-16); Calcium 10.3 mg/dL (8.4-10.2); Carbon Dioxide 25 mmol/L (22-29); Chloride 107 mmol/L (96-108); Estimated Glomerular Filt Rate > 60; Glucose Fasting 100 mg/dL (60-99); Potassium 4.2 mmol/L (3.3-5.1); Sodium 141 mmol/L (135-145); Total Protein 7.1 g/dL (6.5-8.0)
[2023-07-18 14:51] LABS: TSH reflex Free T4 1.88 uIU/mL (0.32-4.0)
[2023-07-21 20:58] LABS: Lamotrigine Lamictal 1.6 mcg/mL (2.5-15.0)
== END 2023-07-18 12:13 | disposition home or self-care (01) ==
LOC: HO.LAB 12:12
PROVIDERS: PCP Internal Medicine; Visit Provider Psychiatry & Neurology Psychiatry
DX: F31.74 Bipolar disorder, in full remission, most recent episode manic (principal); Z79.899 Other long term (current) drug therapy
CPT/HCPCS: 36415; 80053; 80175; 80178; 84443

== ENCOUNTER 2023-07-18 12:14 | Outpatient (AMB) | payer OTHER, SELFPAY ==
--- NOTE | 2023-07-18 11:45 | MHC.OFFVISPS ---
Intake Intake Visit Reasons: depression Allergies No Known Allergies [No Known Allergies*] Allergy (Verified 04/05/23 15:32) Medication List - Last Reconciled 07/18/23 by Lg Espinoza MD clobetasol 0.05% 1 appl topical BID 2 weeks lamotrigine 200 mg PO DAILY lithium carbonate TAKE 1 TABLET BY MOUTH EVERY MORNING AND 2 TABLETS EACH EVENING omeprazole 20 mg PO DAILY 30 days HPI- Psychiatric Chief Complaint: depression HPI Narrative: Pt seen in f/u father moved to this area independant living has been going to medical appts with father and step mother gets blister packs for parants things generally has been handling financials and other things had become quite stressed in [place] has tried to buid in restorative things feels pressure has been sober trying to quit snmoking using juwan gum no manic or depressive sx Past Psychiatric History: hx bipolar dx alcohol use disorder Mental Status Exam Mental Status Exam Narrative: Mental Status Exam Narrative: Appearance: Casually dressed Behavior: Cooperative appropriate psychomotor: Within normal limits Speech: Normal volume and prosody Thought proccess logical and goal-directed Thought content: Future oriented no self-harming thoughts Mood: Euthymic Affect: Appropriate to mood some flattening SI:denies HI:denies VH/AH:none Delusions: None Insight/judgment: Good insight and judgment Memory/cog: Intact Assessment and Plan Assessment & Plan (1) Bipolar 1 disorder, manic, full remission: Status: Acute Code(s): F31.74 - Bipolar disorder, in full remission, most recent episode manic (2) Alcohol use disorder, moderate, in sustained remission: Status: Acute Code(s): F10.21 - Alcohol dependence, in remission Plan Patient under chronic stress managing her father and step mother who are in an independent living but her dealing with dementia illness patient has generally been stable not overly manic or depressed Continue lithium Lamictal no significant manic or depressive episodes Orders: Orders [place] 07/18/23 F31.74 - Bipolar disorder, in full remission, most recent episode manic Lamotrigine Lamictal 07/18/23 F3.74 - Bipolar disorder, in full remission, most recent episode manic Comprehensive [place]. Panel Fast 07/18/23 F3.74 - Bipolar disorder, in full remission, most recent episode manic TSH reflex Free T4 03/28/24 F31.74 - Bipolar disorder, in full remission, most recent episode manic Counseling and coordination of Care Details: I spent [] minutes reviewing the record, seeing the patient and documenting in the medical record. Counseling provided to the patient/caregiver as outlined below. Addressed patient/caregiver concerns regarding current medication regime including effective adherence. Addressed patient/caregiver concerns regarding diagnosis and prognosis including accuracy of diagnosis, prognosis over time, impact of diagnosis. Addressed patient/caregiver concerns regarding impact of recent stressors. [facility] Medical History (Updated 07/24/23 @ 13:02 by Lg Espinoza MD) Alcohol use disorder, moderate, in sustained remission Bipolar 1 disorder, manic, full remission Obesity Fungal infection of foot Distinct protrusion of abdomen Surgical History H/O: hysterectomy History of esophagogastroduodenoscopy (EGD) H/O wisdom tooth extraction History of melanoma History of inguinal hernia Family History Father Afib Bipolar disorder Mother HTN (hypertension) Uterine cancer Other Mental health disorder Social History Housing: House Alcohol intake: former Patient Tobacco Use Status: Current everyday Tobacco user Cigarettes Per Day: 10 e-Cigarette/Vaping Use: Never Used service: No Current occupational status: unemployed Sexual orientation: Straight/Heterosexual Cognitive needs: No Hearing needs: No Vision needs: Yes Social History: only child mother never no children [employer] Substance History: alcohol use dx severe in past Trauma History: angry bipolar father in past Coding Level of Care Code Est Pt Level 3 (61219) Therapy 30m w/E&M (25965) Diagnoses Bipolar 1 disorder, manic, full remission F31.74 Alcohol use disorder, moderate, in sustained remission F10.21
== END 2023-07-18 12:30 | disposition home or self-care (01) ==
LOC: HO.HOP 12:14
PROVIDERS: PCP Internal Medicine; Visit Provider Psychiatry & Neurology Psychiatry
DX: F31.74 Bipolar disorder, in full remission, most recent episode manic (principal); F10.21 Alcohol dependence, in remission
CPT/HCPCS: 90833; 99213

== ENCOUNTER → 2023-07-18 12:14 | Outpatient (BNVA) | payer OTHER, SELFPAY | PROVIDERS: PCP Internal Medicine; Visit Provider Psychiatry & Neurology Psychiatry | DX: F31.74 Bipolar disorder, in full remission, most recent episode manic (principal) ==

== ENCOUNTER 2023-08-29 14:07 | Outpatient (AMB) | payer OTHER, SELFPAY ==
[2023-08-29 14:09] VITALS: BP 120/70; PULSE 91; TEMP 36.4; O2SAT 96; BMI 29.5
--- NOTE | 2023-08-29 14:09 | MHC.OFFWIV ---
Intake Vital Signs 08/29/23 14:09 Height 5 ft 9 in Weight 200 lb BMI 29.5 BP 120/70 Blood Pressure Location Lt brachial Position Sitting Pulse 91 Pulse Source Pulse Oximeter Temp 97.5 F Temp Source Temporal Artery Scan Pulse Oximetry (%) 96 Oxygen Delivery Method Room Air Intake Visit Reasons: EP right eye swollen due to stye Intake Note: pt is here today for rt eye swollen started 2 weeks ago Patient Tobacco Use Status: Current everyday Tobacco user Allergies No Known Allergies [No Known Allergies*] Allergy (Verified 08/29/23 14:14) Do you need a note to return to daycare/school/sports/work: No HPI HPI Comments History of Present Illness Details 58 y/o female patient who presents to walk in clinic with c/o right upper eyelid swelling x 2 weeks. Reports blurry vision but no pain. Pt was exposed to Covid-19 and tested positive last week Saturday. Her parents are positive for Covid. [facility] Medical History (Updated 07/24/23 @ 13:02 by Lg Espinoza MD) Alcohol use disorder, moderate, in sustained remission Bipolar 1 disorder, manic, full remission Obesity Fungal infection of foot Distinct protrusion of abdomen Surgical History H/O: hysterectomy History of esophagogastroduodenoscopy (EGD) H/O wisdom tooth extraction History of melanoma History of inguinal hernia Family History Father Afib Bipolar disorder Mother HTN (hypertension) Uterine cancer Other Mental health disorder Social History Housing: House Alcohol intake: former Patient Tobacco Use Status: Current everyday Tobacco user Cigarettes Per Day: 10 e-Cigarette/Vaping Use: Never Used service: No Current occupational status: unemployed Sexual orientation: Straight/Heterosexual Cognitive needs: No Hearing needs: No Vision needs: Yes Review of Systems Const All systems reviewed & are unremarkable except as noted in HPI and below Physical Exam Vital Signs: Last Vital Signs Temp 97.5 F 08/29/23 14:09 Pulse 91 08/29/23 14:09 BP 120/70 08/29/23 14:09 Pulse Ox 96 08/29/23 14:09 Oxygen Delivery Method Room Air 08/29/23 14:09 BMI result Body Mass Index 29.5 Const General: no acute distress Nutritional Appearance: well nourished Orientation/consciousness: patient oriented x3 HEENT Head: Yes normocephalic Ears: external ears normal General nose exam: Normal external nose present Eyes Eyelids: Yes eyelid abnormality (Right upper eyelid swelling, small bump and redness. ) Pupils: Equal, round and reactive pupils present EOM: EOMs intact bilaterally Direct Ophthalmoscopy: normal light reflex Resp Effort & Inspection: normal respiratory effort and able to speak in complete sentences Auscultation: clear to auscultation bilaterally, no crackles, no rales, no rhonchi and no wheezes Cardio Rate: regular rate Rhythm: regular rhythm Neuro General: patient oriented x3, gait normal and moves all extremities Cranial nerves: Yes Equal, round and reactive pupils present Psych Speech and movement: Normal speech and movement present Assessment & Plan Assessment & Plan (1) Upper respiratory infection: Code(s): J06.9 - Acute upper respiratory infection, unspecified Qualifiers: URI type: unspecified URI Qualified Code(s): J06.9 - Acute upper respiratory infection, unspecified Plan: - OTC cold remedies - Acetaminophen for pain relief (2) Exposure to COVID-19 virus: Code(s): Z20.822 - Contact with and (suspected) exposure to COVID-19 Plan: - Extensive discussion on new COVID-19 isolation guidelines (3) Swelling of right eyelid: Code(s): H02.843 - Edema of right eye, unspecified eyelid Plan: - Warm compress - F/U with eye doctor soon. - Maintain a good eye hygiene. Orders: Orders SARS-CoV2/FLU/RSV Today J06.9 - Acute upper respiratory infection, unspecified, Z20.822 - Contact with and (suspected) exposure to COVID-19 Medications: New erythromycin Apply 1 cm ribbon into the affected eye daily at bedtime 1 appl ophthalmic (eye) DAILY 7 days 3.5 grams 0RF Coding Level of Care Code Est Pt Level 3 (20698) Diagnoses Upper respiratory tract infection, unspecified type J06.9 URI type: unspecified URI Exposure to COVID-19 virus Z20.822 Swelling of right eyelid H02.843 Time Spent (min) 15
== END 2023-08-29 14:52 | disposition home or self-care (01) ==
PROVIDERS: PCP Internal Medicine; Visit Provider Nurse Practitioner Family
DX: J06.9 Acute upper respiratory infection, unspecified (principal); Z20.822 Contact with and (suspected) exposure to COVID-19; H02.843 Edema of right eye, unspecified eyelid
CPT/HCPCS: 99213

== ENCOUNTER 2023-08-29 14:42 | Outpatient (REF) | payer OTHER, SELFPAY ==
[2023-08-29 17:42] LABS: Influenza A PCR NEGATIVE (Negative); Influenza B PCR NEGATIVE (Negative); Resp Syncy Virus RNA Qual PCR NEGATIVE (Negative); SARS COV2 PCR INHOUSE NEGATIVE (Negative)
== END 2023-08-29 14:43 | disposition home or self-care (01) ==
LOC: HO.LAB 14:42
PROVIDERS: Visit Provider Nurse Practitioner Family
DX: Z20.822 Contact with and (suspected) exposure to COVID-19 (principal); J06.9 Acute upper respiratory infection, unspecified
CPT/HCPCS: 0241U

== ENCOUNTER 2023-10-17 12:01 | Outpatient (AMB) | payer OTHER, SELFPAY ==
--- NOTE | 2023-10-17 13:00 | A.OFFPSYCH_ITS ---
Intake Intake Visit Reasons: depression Allergies No Known Allergies [No Known Allergies*] Allergy (Verified 08/29/23 14:14) Medication List - Last Reconciled 10/17/23 by Lg Espinoza MD clobetasol 0.05% 1 appl topical BID 2 weeks erythromycin 1 appl ophthalmic (eye) DAILY 7 days lamotrigine 200 mg PO DAILY lithium carbonate TAKE 1 TABLET BY MOUTH EVERY MORNING AND 2 TABLETS EACH EVENING omeprazole 20 mg PO DAILY 30 days HPI- Psychiatric Chief Complaint: depression HPI Narrative: Patient seen psychiatric follow-up mood stable no significant manic or depressive cycling. Patient has been occupied taking care of her father and stepmother who moved to [place] recently to in [place] community near her from [place]. She has been helping manage their finances taking to medical appointments and appears to do well with this. She remains sober from alcohol. No new medical concerns lab work reviewed from a few months ago LFTs liver functions renal function within normal limits lithium level 0.8 Past Psychiatric History: hx bipolar dx alcohol use disorder Mental Status Exam Mental Status Exam Narrative: Mental Status Exam Narrative: Appearance: Casually dressed Behavior: Cooperative appropriate psychomotor: Within normal limits Speech: Normal volume and prosody Thought proccess logical and goal-directed Thought content: Future oriented some concerns regarding recent events with family her father is now seeing Dr. Flores which is reassuring Mood: Euthymic Affect: Appropriate to mood some flattening SI:denies HI:denies VH/AH:none Delusions: None Insight/judgment: Good insight and judgment Memory/cog: Intact Assessment and Plan Assessment & Plan (1) Alcohol use disorder, moderate, in sustained remission: Status: Acute Code(s): F10.21 - Alcohol dependence, in remission (2) Bipolar 1 disorder, manic, full remission: Status: Acute Code(s): F31.74 - Bipolar disorder, in full remission, most recent episode manic Plan Continue Lamictal lithium has been stable for an extended period of time no a dverse effects noted able to enjoy things seems content in current situation discussed issues regarding 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 [place] This has been extended period of stability for the patient who has had repeated cycling in the past Medications: Refilled lamotrigine 200 mg PO DAILY 90 tabs 1RF lithium carbonate TAKE 1 TABLET BY MOUTH EVERY MORNING AND 2 TABLETS EACH EVENING 270 tabs 1RF Counseling and coordination of Care Details-Self Mgmt counseling: Issues related to 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 Counseling provided to the patient/caregiver as outlined below. Addressed patient/caregiver concerns regarding current medication regime including effective adherence. Addressed patient/caregiver concerns regarding diagnosis and prognosis including accuracy of diagnosis, prognosis over time, impact of diagnosis. Addressed patient/caregiver concerns regarding impact of recent stressors. [facility] Medical History (Updated 07/24/23 @ 13:02 by Lg Espinoza MD) Alcohol use disorder, moderate, in sustained remission Bipolar 1 disorder, manic, full remission Obesity Fungal infection of foot Distinct protrusion of abdomen Surgical History H/O: hysterectomy History of esophagogastroduodenoscopy (EGD) H/O wisdom tooth extraction History of melanoma History of inguinal hernia Family History Father Afib Bipolar disorder Mother HTN (hypertension) Uterine cancer Other Mental health disorder Social History Housing: House Alcohol intake: former Patient Tobacco Use Status: Current everyday Tobacco user Cigarettes Per Day: 10 e-Cigarette/Vaping Use: Never Used service: No Current occupational status: unemployed Sexual orientation: Straight/Heterosexual Cognitive needs: No Hearing needs: No Vision needs: Yes Social History: only child mother never no children [employer] Substance History: alcohol use dx severe in past Trauma History: angry bipolar father in past Coding Level of Care Code Est Pt Level 3 (03157) Tele Therapy 30m w/E&M (75316) Diagnoses Alcohol use disorder, moderate, in sustained remission F10.21 Bipolar 1 disorder, manic, full remission F31.74
== END 2023-10-17 13:06 | disposition home or self-care (01) ==
LOC: HO.HOP 12:01
PROVIDERS: PCP Internal Medicine; Visit Provider Psychiatry & Neurology Psychiatry
DX: F10.21 Alcohol dependence, in remission (principal); F31.74 Bipolar disorder, in full remission, most recent episode manic
CPT/HCPCS: 90833; 99213

== ENCOUNTER → 2023-10-17 12:01 | Outpatient (BNVA) | payer OTHER, SELFPAY | PROVIDERS: PCP Internal Medicine; Visit Provider Psychiatry & Neurology Psychiatry ==

== ENCOUNTER 2024-02-06 10:42 | Outpatient (AMB) | payer OTHER, SELFPAY ==
--- NOTE | 2024-02-06 11:05 | A.OFFPSYCH_ITS ---
Intake Intake Visit Reasons: depression Allergies No Known Allergies [No Known Allergies*] Allergy (Verified 08/29/23 14:14) Medication List - Last Reconciled 02/06/24 by Lg Espinoza MD clobetasol 0.05% 1 appl topical BID 2 weeks erythromycin 1 appl ophthalmic (eye) DAILY 7 days lamotrigine 200 mg PO DAILY lithium carbonate TAKE 1 TABLET BY MOUTH EVERY MORNING AND 2 TABLETS EACH EVENING omeprazole 20 mg PO DAILY 30 days HPI- Psychiatric Chief Complaint: depression HPI Narrative: Patient has generally been doing quite well remains stable ongoing. Has some stress taking care of affairs with her father who sees Dr. Flores and her stepmother who has Parkinson's. Patient remains sober no new medical concerns. PHQ-9 in GED were unremarkable. The patient continues on lithium and Lamictal with good effect no complaints of side effects no lab changes significant of any significance noted Past Psychiatric History: hx bipolar dx alcohol use disorder Mental Status Exam Mental Status Exam Narrative: Mental Status Exam Narrative: Appearance: Casually dressed Behavior: Cooperative appropriate psychomotor: Within normal limits Speech: Normal volume and prosody Thought proccess logical and goal-directed Thought content: Future oriented some concerns Mood: Euthymicgenerally good Affect: Appropriate to mood some flattening SI:denies HI:denies VH/AH:none Delusions: None Insight/judgment: Good insight and judgment Memory/cog: Intact Assessment and Plan Assessment & Plan (1) Bipolar 1 disorder, manic, full remission: Status: Acute Code(s): F31.74 - Bipolar disorder, in full remission, most recent episode manic (2) Alcohol use disorder, moderate, in sustained remission: Status: Acute Code(s): F10.21 - Alcohol dependence, in remission Plan Check lithium level TSH CBC and chemistry profile continue Lamictal and lithium monitor thyroid and kidney function. Patient doing well no tremor noted Medications: Changed From lithium carbonate TAKE 1 TABLET BY MOUTH EVERY MORNING AND 2 TABLETS EACH EVENING 270 tabs 1RF To lithium carbonate TAKE 1 TABLET BY MOUTH EVERY MORNING AND 2 TABLETS EACH EVENING 270 tabs 1RF Refilled lamotrigine 200 mg PO DAILY 90 tabs 1RF Orders: Orders TSH reflex Free T4 02/06/24 F31.78 - Bipolar disorder, in full remission, most recent episode mixed, F31.74 - Bipolar disorder, in full remission, most recent episode manic, R79.89 - Other specified abnormal findings of blood chemistry, Z51.81 - Encounter for therapeutic drug level monitoring [place] 02/06/24 F31.78 - Bipolar disorder, in full remission, most recent episode mixed, F31.74 - Bipolar disorder, in full remission, most recent episode manic, R79.89 - Other specified abnormal findings of blood chemistry, Z51.81 - Encounter for therapeutic drug level monitoring Complete Blood Count Auto Diff 02/06/24 F31.78 - Bipolar disorder, in full remission, most recent episode mixed, F31.74 - Bipolar disorder, in full remission, most recent episode manic, R79.89 - Other specified abnormal findings of blood chemistry, Z51.81 - Encounter for therapeutic drug level monitoring Comprehensive [place]. Panel Fast 02/06/24 F31.78 - Bipolar disorder, in full remission, most recent episode mixed, F31.74 - Bipolar disorder, in full remission, most recent episode manic, R79.89 - Other specified abnormal findings of blood chemistry, Z51.81 - Encounter for therapeutic drug level monitoring Counseling and coordination of Care Details-Self Mgmt counseling: discussed smoking avoidance issues related to again caring for disabled parents trying to sort through her own identity with ongoing stability which she did not have for most of her life Medication management counseling: Effectiveness and Side effects Diagnosis and Prognosis Counseling: Impact of diagnosis on life functions and Adequacy of current interventions Details: I spent [42] minutes reviewing the record, seeing the patient and documenting in the medical record. Counseling provided to the patient/caregiver as outlined below. Addressed patient/caregiver concerns regarding current medication regime including effective adherence. Addressed patient/caregiver concerns regarding diagnosis and prognosis including accuracy of diagnosis, prognosis over time, impact of diagnosis. Addressed patient/caregiver concerns regarding impact of recent stressors. [facility] Medical History (Updated 02/06/24 @ 11:04 by Lg Espinoza MD) Alcohol use disorder, moderate, in sustained remission Bipolar 1 disorder, manic, full remission Obesity Fungal infection of foot Distinct protrusion of abdomen Surgical History H/O: hysterectomy History of esophagogastroduodenoscopy (EGD) H/O wisdom tooth extraction History of melanoma History of inguinal hernia Family History Father Afib Bipolar disorder Mother HTN (hypertension) Uterine cancer Other Mental health disorder Social History Housing: House Alcohol intake: former Patient Tobacco Use Status: Current everyday Tobacco user Cigarettes Per Day: 10 e-Cigarette/Vaping Use: Never Used service: No Current occupational status: unemployed Sexual orientation: Straight/Heterosexual Cognitive needs: No Hearing needs: No Vision needs: Yes Social History: only child mother never no children church Substance History: alcohol use dx severe in past Trauma History: angry bipolar father in past Coding Level of Care Code Est Pt Level 3 (62822) Therapy 30m w/E&M (92913) Diagnoses Bipolar 1 disorder, manic, full remission F31.74 Alcohol use disorder, moderate, in sustained remission F10.21
== END 2024-02-06 16:10 | disposition home or self-care (01) ==
LOC: HO.HOP 10:42
PROVIDERS: PCP Internal Medicine; Visit Provider Psychiatry & Neurology Psychiatry
DX: F31.74 Bipolar disorder, in full remission, most recent episode manic (principal); F10.21 Alcohol dependence, in remission
CPT/HCPCS: 90833; 99213

== ENCOUNTER → 2024-02-06 10:42 | Outpatient (BNVA) | payer OTHER, SELFPAY | PROVIDERS: PCP Internal Medicine; Visit Provider Psychiatry & Neurology Psychiatry ==

== ENCOUNTER 2024-03-17 14:32 | Outpatient (AMB) | payer OTHER, SELFPAY ==
--- NOTE | 2024-03-17 14:34 | A.OFFPC_ITS ---
Vital Signs 03/17/24 14:35 Height 5 ft 9 in Weight 196 lb 8 oz BMI 29.0 BP 112/78 Blood Pressure Location Lt brachial Position Sitting Pulse 79 Pulse Source Pulse Oximeter Pulse Oximetry (%) 96 Oxygen Delivery Method Room Air Intake Visit Reasons: Annual PE Allergies No Known Allergies [No Known Allergies*] Allergy (Verified 03/17/24 14:35) Medication List - Last Reconciled 03/17/24 by Ian Junior MD lamotrigine 200 mg PO DAILY lithium carbonate TAKE 1 TABLET BY MOUTH EVERY MORNING AND 2 TABLETS EACH EVENING omeprazole 20 mg PO DAILY 30 days Tobacco use date assessed: 03/17/24 Dental Screening Dental Screen Date: 03/17/24 Did you have a dental visit in the last 12 months?: Yes Did you have a dental problem in the last 6 months where you did not have access to dental care?: No Was dental information given to patient?: Patient has dentist HPI Annual PE HPI Details The patient presents for an annual physical examination. Health Maintenance - Mammogram up-to-date - PRESENTATION MANAGER visit due in April; two appoi ntments on May 26 and 2023. - Flu vaccine status to be confirmed at [facility]; COVID vaccine administration noted. - Zoster vaccine: second dose pending. - Podologist consultation advised for or thotics replacement; not for diabetic neuropathy. - Blood test ordered: Fasting required f or 10 hours. - Follow-up with outpatient psychiatry o n April 30, 2023, regarding lithium therapy. - Referral for a protozoologist if orthotic adjustment required, noted for arch support. - Smoking cessation discussion; patient advised to quit. Colonoscopy by Dr. [facility] Assessment and Plan 58-year-old female with a history of lic hen sclerosus presenting for her annual physical examination. The patient reports minimal symptoms from lichen sclerosus and was previously prescribed steroids. Current concerns include evaluation of ongoing lithium therapy, nicotine dependence, and general well-being as part of the routine health examination. The patient has upcoming appointments for gynecological follow-up and psychiatric assessment for lithium management. Orthotic use discussed in context with non-diabetic arch support requirements. 1. Secondary hyperparathyroidism, not el sewhere classified E21.1 HCC 23 Regular blood tests are planned to monitor lithium levels due to potential renal toxicity. An outpatient psychiatric follow-up is scheduled for April 30, 2023, to discuss ongoing management and toxicity concerns noted in conversation. 2. Nicotine Dependence Discussed the necessity for smoking cessation and considered alternatives like nicotine gum for reduced intake. Patient is aware of the recommendation to discontinue smoking and is tasked with attempting a smoking cessation plan. 3. Lichen Sclerosus The condition is currently asymptomatic with previous steroid prescription aimed at preventing progression. Follow-up is scheduled with the PRESENTATION MANAGER office in May for further assessment and guideline re-evaluation. 4- bipolar disorder managed by Dr. Kourtney madrid Patient Instructions - Complete blood work following a 10-mikayla r fasting period before the psychiatric follow-up. - Confirm flu vaccination status with CV S and discuss potential scheduling for a second zoster vaccine dose. - Consult with a protozoologist regarding or thopedic shoe inserts. - Monitor symptoms related to lichen scl erosus and adhere to follow-up appointments in May. - Engage with a smoking cessation plan a nd utilize resources available for support. - Report any adverse symptoms related to lithium use to the psychiatric practitioner. Lab order placed to be done fasting Follow-up 1 year [facility] Medical History Alcohol use disorder, moderate, in sustained remission Bipolar 1 disorder, manic, full remission Obesity Fungal infection of foot Distinct protrusion of abdomen Surgical History H/O: hysterectomy History of esophagogastroduodenoscopy (EGD) H/O wisdom tooth extraction History of melanoma History of inguinal hernia Family History Father Afib Bipolar disorder Mother HTN (hypertension) Uterine cancer Other Mental health disorder Social History Housing: House Alcohol intake: former Patient Tobacco Use Status: Current everyday Tobacco user Cigarettes Per Day: 10 e-Cigarette/Vaping Use: Never Used service: No Current occupational status: unemployed Sexual orientation: Straight/Heterosexual Cognitive needs: No Hearing needs: No Vision needs: Yes Questionnaire PHQ-9 Over the last 2 weeks, how often have you been bothered by any of the following problems? 1. Little interest or pleasure in doing things: not at all 2. Feeling down, depressed, or hopeless: not at all 3. Trouble falling or staying asleep, or sleeping too much: not at all 4. Feeling tired or having little energy: not at all 5. Poor appetite or overeating: not at all 6. Feeling bad about yourself - or that you are a failure or have let yourself or your family down: not at all 7. Trouble concentrating on things, such as reading the newspaper or watching television: not at all 8. Moving or speaking so slowly that other people could have noticed. Or the opposite - being so fidgety or restless that you have been moving around a lot more than usual: not at all 9. Thoughts that you would be better off or of hurting yourself in some way: not at all Total score: 0 Depression Screening Interpretation: Negative Depression Screening Done: Yes 90363 - PHQ-9 Billing: Yes Source: Developed by Drs. Deondre Riley, Izabela Gtz, Yaw Bronson and colleagues, with an educational windy from [employer]. Thrive Questionnaire Date Thrive assessed: 03/17/24 I am a: Patient What is your living situation today?: I have a steady place to live Within the past 12 months, did the food you bought not last and you didn't have the money to get more?: Never true Within the past 12 months, did you worry whether your food would run out before you got money to buy more?: Never true Do you have trouble paying for medicines?: No Do you have trouble getting transportation to medical appointments?: No Do you have trouble paying your heating and electricity bill?: No Do you have trouble taking care of your child, family member or friend?: No Do you have trouble with day-to-day activities such as bathing, preparing meals, shopping, managing finances, etc.?: No Are you currently unemployed and looking for a job?: No Are you interested in more education?: No Please select the resources that you would like help with: None Currently or been in a relationship where the following occur: No concerns reported THRIVE Score: 0 AUDIT C Alcohol Use Questionnaire (AUDIT-C) 1. How often do you have a drink containing alcohol?: Never 3. How often do you have six or more drinks on one occasion?: Never Total Score: 0 Score Reviewed/Action Taken: Yes MAICOL-7 AMB Questionnaire MAICOL-7 Date MAICOL - 7 assessed: 03/17/24 Feeling nervous, anxious, or on edge: 0 = Not at all Not being able to stop or control worryin = Not at all Worrying too much about different things: 0 = Not at all Trouble relaxin = Not at all Being so restless that it is hard to sit still: 0 = Not at all Becoming easily annoyed or irritable: 0 = Not at all Feeling afraid as if something awful might happen: 0 = Not at all Total MAICOL-7 score (0-4 normal; 5-9 mild; 10-14 moderate; 15-21 severe): 0 Source: Developed by Drs. Deondre Riley, Izabela Gtz, Yaw Bronson and colleagues, with an educational windy from [employer]. MAICOL-7 Assessment Billing MAICOL-7 Assessment Tool: MAICOL-7 Assessment 18973 Review of Systems Const Denies chills, Denies fever(s) and Denies headache(s) Eyes Denies blurry vision ENT Denies headache(s), Denies nasal discharge, Denies nasal obstruction, Denies odynophagia and Denies sinus pain Card Denies chest pain at rest and Denies chest pain with activity Resp Denies cough and Denies hemoptysis GI Denies diarrhea, Denies odynophagia, Denies vomiting and Denies hematemesis Reports as per HPI Musc Denies abnormal gait Skin/Breast Reports as per HPI Neuro Denies Neuro-related abnormal movements, Denies Abnormal speech present, Denies abnormal gait, Denies headache(s) and Denies Sensory deficit (Neuro) Psych Denies mood swings and Denies paranoia Endo Reports as per HPI Shreyas/Lymph Reports as per HPI Aller/Immun Reports as per HPI Physical exam (Primary Care) Vital Signs: Last Vital Signs Pulse 79 03/17/24 14:35 BP 112/78 03/17/24 14:35 Pulse Ox 96 03/17/24 14:35 Oxygen Delivery Method Room Air 03/17/24 14:35 BMI result Body Mass Index 29.0 Tobacco/Smoking Status: Tobacco use Status Tobacco use date assessed 03/08/23 03/08/23 14:52 Patient Tobacco Use Status Current everyday Tobacco 08/29/23 14:09 e-Cigarette/Vaping Use Never Used 03/08/23 14:52 Depression Screening Interpretation: Negative Thrive Assessment: Date of Thrive Assessment Date Thrive assessed 03/17/24 03/17/24 13:49 Currently or been in a relationship where the following occur: No concerns reported Const General: cooperative, comfortable and no acute distress Orientation/consciousness: patient oriented x3 HENMT Head: Yes normocephalic and Yes atraumatic Eyes General: appearance normal, both eyes and all related structures Pupils: Equal, round and reactive pupils present EOM: EOMs intact bilaterally Neck Neck: Yes supple and No lymphadenopathy Thyroid: Thyroid normal Lymphatic: no lymphadenopathy noted Chest Breast/axilla palpation: normal palpation of the breasts Resp Effort & Inspection: normal respiratory effort and able to speak in complete s entences Auscultation: clear to auscultation bilaterally Cardio Heart sounds: S1 normal heart sound present and S2 normal heart sound present GI Palpation (GI): Soft to palpation and nontender Auscultation: normal bowel sounds General: Yes no CVA tenderness Back/Spine/Pelvis Back: no CVA tenderness Skin General skin exam: elasticity normal and turgor normal Neuro General: patient oriented x3 and gait normal Cranial nerves: Yes Equal, round and reactive pupils present Speech: No Abnormal speech present Sensory Exam: No Sensory deficit (Neuro) Coordination: tandem gait normal and Romberg test negative Extrem General: Yes normal exam except as noted and No edema Coding Level of Care Code Est Pt Level 3 (41284) Est Pt Prev Care 40-64y(56437) Diagnoses Encounter for general adult medical examination with abnormal findings Z00. Tobacco use disorder F17.200 Tobacco abuse counseling Z71.6 Bipolar 1 disorder, mixed, full remission F31.78 Additional Codes MAICOL-7 Assessment Billing - MAICOL-7 Assessment Tool: MAICOL-7 Assessment 42470 ([id number]) PHQ-9 - 03728 - PHQ-9 Billing: Yes ([id number]) Assessment & Plan Assessment & Plan (1) Encounter for general adult medical examination with abnormal findings: Code(s): Z00.01 - Encounter for general adult medical examination with abnormal findings Category: Medical (2) Tobacco use disorder: Code(s): F17.200 - Nicotine dependence, unspecified, uncomplicated Category: Medical (3) Tobacco abuse counseling: Code(s): Z71.6 - Tobacco abuse counseling Category: Medical (4) Bipolar 1 disorder, mixed, full remission: Code(s): F31.78 - Bipolar disorder, in full remission, most recent episode mixed Category: Medical Plan The patient presents for an annual physical examination. Health Maintenance - Mammogram up-to-date - PRESENTATION MANAGER visit due in April; two appointments on May 26 and 2023. - Flu vaccine status to be confirmed at [facility]; COVID vaccine administration noted. - Zoster vaccine: second dose pending. - Podologist consultation advised for orthotics replacement; not for diabetic neuropathy. - Blood test ordered: Fasting required for 10 hours. - Follow-up with outpatient psychiatry on April 30, 2023, regarding lithium therapy. - Referral for a protozoologist if orthotic adjustment required, noted for arch support. - Smoking cessation discussion; patient advised to quit. Colonoscopy by Dr. Anne [facility] Assessment and Plan 58-year-old female with a history of lichen sclerosus presenting for her annual physical examination. The patient reports minimal symptoms from lichen sclerosus and was previously prescribed steroids. Current concerns include evaluation of ongoing lithium therapy, nicotine dependence, and general well-being as part of the routine health examination. The patient has upcoming appointments for gynecological follow-up and psychiatric assessment for lithium management. Orthotic use discussed in context with non-diabetic arch support requirements. 1. Secondary hyperparathyroidism, not elsewhere classified E21.1 HCC 23 Regular blood tests are planned to monitor lithium levels due to potential renal toxicity. An outpatient psychiatric follow-up is scheduled for April 30, 2023, to discuss ongoing management and toxicity concerns noted in conversation. 2. Nicotine Dependence Discussed the necessity for smoking cessation and considered alternatives like nicotine gum for reduced intake. Patient is aware of the recommendation to discontinue smoking and is tasked with attempting a smoking cessation plan. 3. Lichen Sclerosus The condition is currently asymptomatic with previous steroid prescription aimed at preventing progression. Follow-up is scheduled with the PRESENTATION MANAGER office in May for further assessment and guideline re-evaluation. 4- bipolar disorder managed by Dr. Espinoza Patient Instructions - Complete blood work following a 10-hour fasting period before the psychiatric follow-up. - Confirm flu vaccination status with [facility] and discuss potential scheduling for a second zoster vaccine dose. - Consult with a protozoologist regarding orthopedic shoe inserts. - Monitor symptoms related to lichen sclerosus and adhere to follow-up appointments in May. - Engage with a smoking cessation plan and utilize resources available for support. - Report any adverse symptoms related to lithium use to the psychiatric practitioner. Lab order placed to be done fasting Follow-up 1 year Orders: Orders TSH reflex Free T4 Today F17.200 - Nicotine dependence, unspecified, uncomplicated, F31.78 - Bipolar disorder, in full remission, most recent episode mixed, R79.89 - Other specified abnormal findings of blood chemistry, Z00.01 - Encounter for general adult medical examination with abnormal findings, Z71.6 - Tobacco abuse counseling Complete Blood Count Auto Diff Today F17.200 - Nicotine dependence, unspecified, uncomplicated, F31.78 - Bipolar disorder, in full remission, most recent episode mixed, R79.89 - Other specified abnormal findings of blood chemistry, Z00.01 - Encounter for general adult medical examination with abnormal findings, Z71.6 - Tobacco abuse counseling Comprehensive [place]. Panel Fast Today F17.200 - Nicotine dependence, unspecified, uncomplicated, F31.78 - Bipolar disorder, in full remission, most recent episode mixed, R79.89 - Other specified abnormal findings of blood chemistry, Z00.01 - Encounter for general adult medical examination with abnormal findings, Z71.6 - Tobacco abuse counseling Lipid Panel Today F17.200 - Nicotine dependence, unspecified, uncomplicated, F31.78 - Bipolar disorder, in full remission, most recent episode mixed, R79.89 - Other specified abnormal findings of blood chemistry, Z00.01 - Encounter for general adult medical examination with abnormal findings, Z71.6 - Tobacco abuse counseling
[2024-03-17 14:35] VITALS: BP 112/78; PULSE 79; O2SAT 96; BMI 29.0
== END 2024-03-17 14:58 | disposition home or self-care (01) ==
PROVIDERS: PCP Internal Medicine; Visit Provider Internal Medicine
DX: Z00.00 Encounter for general adult medical examination without abnormal findings (principal); F17.210 Nicotine dependence, cigarettes, uncomplicated; Z71.6 Tobacco abuse counseling; F31.78 Bipolar disorder, in full remission, most recent episode mixed

== ENCOUNTER → 2024-03-17 14:32 | Outpatient (BNVA) | payer OTHER, SELFPAY | PROVIDERS: PCP Internal Medicine; Visit Provider Internal Medicine | DX: Z00.01 Encounter for general adult medical examination with abnormal findings (principal); F31.78 Bipolar disorder, in full remission, most recent episode mixed; N25.81 Secondary hyperparathyroidism of renal origin; L90.0 Lichen sclerosus et atrophicus; F17.210 Nicotine dependence, cigarettes, uncomplicated; Z71.6 Tobacco abuse counseling | CPT/HCPCS: 96127 ==

== ENCOUNTER 2024-04-30 11:10 | Outpatient (AMB) | payer OTHER, SELFPAY ==
--- NOTE | 2024-04-30 11:17 | A.OFFPSYCH_ITS ---
Intake Intake Visit Reasons: depression Allergies No Known Allergies [No Known Allergies*] Allergy (Verified 03/17/24 14:35) HPI- Psychiatric Chief Complaint: depression HPI Narrative: Pt seen in f/u mood was generally ok till past month f had surgery for crohns disease. Has been stressed with med issues with her father . Margarita her stepmother has had recent difficulties has had more progression periods of confusion. Feeling somewhat overwhelmed irritable with her f at times.Pt has difficulty having a life for herself. Past Psychiatric History: hx bipolar dx alcohol use disorder Mental Status Exam Mental Status Exam Narrative: Mental Status Exam Narrative: Appearance: Casually dressed Behavior: Cooperative appropriate psychomotor: Within normal limits Speech: Normal volume and prosody Thought proccess logical and goal-directed Thought content: Future oriented lots of concerns re her parents and stress Mood: generally ok some anxiety Affect: constricted SI:denies HI:denies VH/AH:none Delusions: None Insight/judgment: Good insight and judgment Memory/cog: Intact Assessment and Plan Assessment & Plan (1) Bipolar 1 disorder, manic, full remission: Status: Acute Code(s): F31.74 - Bipolar disorder, in full remission, most recent episode manic (2) Alcohol use disorder, moderate, in sustained remission: Status: Acute Code(s): F10.21 - Alcohol dependence, in remission (3) Generalized anxiety disorder: Status: Acute Code(s): F41.1 - Generalized anxiety disorder Plan cont lithium and lamictal discussed options regarding management help with her father and step mother who have chronic conditions need help with self care med management Counseling and coordination of Care Details-Self Mgmt counseling: issues related to stress with parents managing stress and maintaining health Medication management counseling: Effectiveness Diagnosis and Prognosis Counseling: Adequacy of current interventions Details: I spent [39] minutes reviewing the record, seeing the patient and documenting in the medical record. Counseling provided to the patient/caregiver as outlined below. Addressed patient/caregiver concerns regarding current medication regime including effective adherence. Addressed patient/caregiver concerns regarding diagnosis and prognosis including accuracy of diagnosis, prognosis over time, impact of diagnosis. Addressed patient/caregiver concerns regarding impact of recent stressors. [facility] Medical History (Updated 05/08/24 @ 14:19 by Lg Espinoza MD) Generalized anxiety disorder Alcohol use disorder, moderate, in sustained remission Bipolar 1 disorder, manic, full remission Obesity Fungal infection of foot Distinct protrusion of abdomen Surgical History H/O: hysterectomy History of esophagogastroduodenoscopy (EGD) H/O wisdom tooth extraction History of melanoma History of inguinal hernia Family History Father Afib Bipolar disorder Mother HTN (hypertension) Uterine cancer Other Mental health disorder Social History Housing: House Alcohol intake: former Patient Tobacco Use Status: Current everyday Tobacco user Cigarettes Per Day: 10 e-Cigarette/Vaping Use: Never Used service: No Current occupational status: unemployed Sexual orientation: Straight/Heterosexual Cognitive needs: No Hearing needs: No Vision needs: Yes Social History: only child mother never no children [employer] Substance History: alcohol use dx severe in past Trauma History: angry bipolar father in past Coding Level of Care Code Est Pt Level 3 (43399) Therapy 30m w/E&M (62549) Diagnoses Bipolar 1 disorder, manic, full remission F31.74 Alcohol use disorder, moderate, in sustained remission F10.21 Generalized anxiety disorder F41.1
== END 2024-04-30 11:48 | disposition home or self-care (01) ==
LOC: HO.HOP 11:10
PROVIDERS: PCP Internal Medicine; Visit Provider Psychiatry & Neurology Psychiatry
DX: F31.74 Bipolar disorder, in full remission, most recent episode manic (principal); F10.21 Alcohol dependence, in remission; F41.1 Generalized anxiety disorder
CPT/HCPCS: 90833; 99213

== ENCOUNTER 2024-04-30 11:10 | Outpatient (REF) | payer OTHER, SELFPAY ==
[2024-04-30 12:08] LABS: MANUAL DIFF FLAG NO
[2024-04-30 12:35] LABS: Basophils Absolute Auto 0.1 X10*3/uL (0.0-0.2); Basophils Percent Auto 0.7 % (0-2); Eosinophils Absolute Auto 0.3 X10*3/uL (0.0-0.4); Eosinophils Percent Auto 3.1 % (0-4); Hematocrit 40.2 % (37.0-47.0); Hemoglobin 13.4 g/dl (12.0-16.0); Imm Gran Abs Auto 0.05 X10*3/uL (0.00-0.03); Imm Gran Pct Auto 0.5 % (0.0-0.4); Lymphocytes Absolute Auto 2.9 X10*3/uL (1.2-4.9); Lymphocytes Percent Auto 26.6 % (20-40); Mean Corpuscular HGB Conc 33.3 g/dl (31.0-35.0); Mean Corpuscular Hemoglobin 31.5 pg (27.0-33.0); Mean Corpuscular Volume 94.6 fL (80.0-98.0); Mean Platelet Volume 9.1 fL (9.4-12.3); Monocytes Absolute Auto 0.8 X10*3/uL (0.1-1.2); Monocytes Percent Auto 7.5 % (2-11); Neutrophils Absolute Auto 6.6 x10*3/uL (2.0-8.3); Neutrophils Percent Auto 61.6 % (45-73); Platelet Count 427 X10*3/uL (160-400); Red Blood Count 4.25 X10*6/uL (4.20-5.50); White Blood Count 10.7 X10*3/uL (4.8-10.8)
[2024-04-30 13:44] LABS: Lithium 0.72 mmol/L (0.60-1.20)
[2024-04-30 14:01] LABS: Alanine Aminotransferase 29 U/L (0-31); Albumin Level 4.1 g/dL (3.5-5.0); Alkaline Phosphatase 57 U/L (39-117); Anion Gap 8 (12-20); Aspartate Amino Transferase 19 U/L (5-31); Bilirubin Total 0.4 mg/dL (0.0-1.0); Blood Urea Nitrogen 10 mg/dL (9-16); Calcium 10.1 mg/dL (8.4-10.2); Carbon Dioxide 25 mmol/L (22-29); Chloride 112 mmol/L (96-108); Cholesterol 210 mg/dL (<200); Estimated Glomerular Filt Rate > 60; Glucose Fasting 84 mg/dL (60-99); HDL Cholesterol 60 mg/dL (>40); LDL Cholesterol Calculated 128 mg/dL (<100); Potassium 4.4 mmol/L (3.3-5.1); Sodium 141 mmol/L (135-145); Total Protein 6.8 g/dL (6.5-8.0); Triglycerides 110 mg/dL (<150)
[2024-04-30 14:03] LABS: TSH reflex Free T4 1.81 uIU/mL (0.32-4.0)
== END 2024-04-30 11:11 | disposition home or self-care (01) ==
LOC: HO.LAB 11:10
PROVIDERS: Absent Provider Internal Medicine; PCP Internal Medicine; Visit Provider Psychiatry & Neurology Psychiatry
DX: Z00.01 Encounter for general adult medical examination with abnormal findings (principal); F31.78 Bipolar disorder, in full remission, most recent episode mixed; F31.74 Bipolar disorder, in full remission, most recent episode manic; R79.89 Other specified abnormal findings of blood chemistry; Z51.81 Encounter for therapeutic drug level monitoring; F17.200 Nicotine dependence, unspecified, uncomplicated; Z71.6 Tobacco abuse counseling
CPT/HCPCS: 36415; 80053; 80061; 80178; 84443; 85025

== ENCOUNTER 2024-05-26 11:23 | Outpatient (AMB) | payer OTHER, SELFPAY ==
--- NOTE | 2024-05-26 11:28 | A.OFFVIS_ITS ---
Intake Visit Reasons: re-inspection Health Informatics Instructor: Health Informatics Instructor Present (Mulu) Accompanied by: Self / Same As Patient Allergies No Known Allergies [No Known Allergies*] Allergy (Verified 05/26/24 11:28) HPI Comments Details: Presenting for reinspection for lichen sclerosis. The patient is doing well with minimal to no irritation/itching, using clobetasol as needed. [facility] Medical History (Updated 05/08/24 @ 14:19 by Lg Espinoza MD) Generalized anxiety disorder Alcohol use disorder, moderate, in sustained remission Bipolar 1 disorder, manic, full remission Obesity Fungal infection of foot Distinct protrusion of abdomen Surgical History H/O: hysterectomy History of esophagogastroduodenoscopy (EGD) H/O wisdom tooth extraction History of melanoma History of inguinal hernia Family History Father Afib Bipolar disorder Mother HTN (hypertension) Uterine cancer Other Mental health disorder Social History Housing: House Alcohol intake: former Patient Tobacco Use Status: Current everyday Tobacco user Cigarettes Per Day: 10 e-Cigarette/Vaping Use: Never Used service: No Current occupational status: unemployed Sexual orientation: Straight/Heterosexual Cognitive needs: No Hearing needs: No Vision needs: Yes Review of Systems Const All systems reviewed & are unremarkable except as noted in HPI and below Physical Exam General: Yes no CVA tenderness External Female Exam: normal external appearance and normal appearance of the urethra Speculum Exam - Vagina: normal appearance of the vagina, normal palpation, no lesions and no masses Speculum Exam - Cervix: normal appearance of the cervix, normal palpation, no lesions, no masses and nontender Bimanual exam- vagina & uterus: normal bimanual exam, normal palpation, uterine size normal, normal palpation, uterine shape normal, No Cervical tenderness present and non-tender Bimanual Exam- Adnexa, other: normal adnexae Back/Spine/Pelvis Back: no CVA tenderness Assessment & Plan Assessment & Plan (1) Lichen sclerosus: Code(s): L90.0 - Lichen sclerosus et atrophicus Category: Medical Plan: Discussed with the patient the finding on pelvic exam. Explained to the patient that Lichen sclerosus refers to a benign, chronic, progressive dermatologic condition characterized by marked inflammation, epithelial thinning accompanied by pruritus and pain. In addition, discussed with the patient that there is a small increased risk of squamous cell cancer of the vulva in patients with lichen sclerosus. Adequate treatment of the disease seems to be associated with a reduced risk of development of neoplasia. Instructed the patient to schedule an appointment in a year to examine the affected area, with possible biopsy of suspicious lesions, in addition explained to the patient that she should look at the skin of the affected area and touch with fingertips monthly to search for thickened lumps or sores that do not heal & to report such findings for inspection & possible biopsy to rule out vulvar cancer Clobetasol propionate 0.05% ointment to be applied as needed or maintenance therapy two to three times per week . Coding Level of Care Code Est Pt Level 3 (94275) Diagnoses Lichen sclerosus L90.0
== END 2024-05-26 11:56 | disposition home or self-care (01) ==
LOC: HO.HWS 11:23
PROVIDERS: PCP Internal Medicine; Visit Provider Obstetrics & Gynecology
DX: L90.0 Lichen sclerosus et atrophicus (principal)
CPT/HCPCS: 99213

== ENCOUNTER → 2024-05-26 11:23 | Outpatient (BNVA) | payer OTHER, SELFPAY | PROVIDERS: PCP Internal Medicine; Visit Provider Obstetrics & Gynecology ==

== ENCOUNTER 2024-07-23 12:04 | Outpatient (AMB) | payer OTHER, SELFPAY ==
--- NOTE | 2024-07-23 12:12 | A.OFFPSYCH_ITS ---
Intake Intake Visit Reasons: depression Allergies No Known Allergies [No Known Allergies*] Allergy (Verified 05/26/24 11:28) HPI- Psychiatric Chief Complaint: depression HPI Narrative: Ptseen in psych follow up mood has been ok f recently had tia had crohns colon ca feels ok about her role in her dads life no medical changes for pt step mother going to gerontology program at [facility] she has parkinsons dementia has new home care person at [facility] Patient herself continues on lithium and Lamictal no cycling no marcela or depression of any significant extent Past Psychiatric History: hx bipolar dx alcohol use disorder Mental Status Exam Mental Status Exam Narrative: Mental Status Exam Narrative: Appearance: Casually dressed Behavior: Cooperative appropriate psychomotor: Within normal limits Speech: Normal volume and prosody Thought proccess logical and goal-directed Thought content: Future oriented appropriate concerns about her father and stepmother Mood: generally ok some anxiety Affect: Full affect SI:denies HI:denies VH/AH:none Delusions: None Insight/judgment: Good insight and judgment Memory/cog: Intact Assessment and Plan Assessment & Plan (1) Bipolar 1 disorder, manic, full remission: Status: Acute Code(s): F31.74 - Bipolar disorder, in full remission, most recent episode manic Medications: Refilled lamotrigine 200 mg PO DAILY 90 tabs 1RF Orders: Orders Jen[place] 3 Months F17.200 - Nicotine dependence, unspecified, uncomplicated Lamotrigine Lamictal 3 Months F17.200 - Nicotine dependence, unspecified, uncomplicated Lipid Panel 3 Months F17.200 - Nicotine dependence, unspecified, uncomplicated, F31.74 - Bipolar disorder, in full remission, most recent episode manic TSH reflex Free T4 3 Months F17.200 - Nicotine dependence, unspecified, uncomplicated Comprehensive Met. Panel 3 Months F17.200 - Nicotine dependence, unspecified, uncomplicated Counseling and coordination of Care Medication management counseling: Effectiveness and Side effects Details-Med Mgmt counseling: Discussed options related to lithium and Lamictal monitoring for side effects check lab patient has no complaints of side effects Diagnosis and Prognosis Counseling: Impact of diagnosis on life functions Details-Diagnosis/Prognosis counseling: Patient remains steady has cut down on smoking Details: I spent [40] minutes reviewing the record, seeing the patient and documenting in the medical record. Counseling provided to the patient/caregiver as outlined below. Addressed patient/caregiver concerns regarding current medication regime including effective adherence. Addressed patient/caregiver concerns regarding diagnosis and prognosis including accuracy of diagnosis, prognosis over time, impact of diagnosis. Addressed patient/caregiver concerns regarding impact of recent s tressors. [facility] Medical History (Updated 05/08/24 @ 14:19 by Lg Espinoza MD) Generalized anxiety disorder Alcohol use disorder, moderate, in sustained remission Bipolar 1 disorder, manic, full remission Obesity Fungal infection of foot Distinct protrusion of abdomen Surgical History H/O: hysterectomy History of esophagogastroduodenoscopy (EGD) H/O wisdom tooth extraction History of melanoma History of inguinal hernia Family History Father Afib Bipolar disorder Mother HTN (hypertension) Uterine cancer Other Mental health disorder Social History Housing: House Alcohol intake: former Patient Tobacco Use Status: Current everyday Tobacco user Cigarettes Per Day: 10 e-Cigarette/Vaping Use: Never Used service: No Current occupational status: unemployed Sexual orientation: Straight/Heterosexual Cognitive needs: No Hearing needs: No Vision needs: Yes Social History: only child mother never no children uatsdin Substance History: alcohol use dx severe in past Trauma History: angry bipolar father in past Coding Level of Care Code Est Pt Level 4 (59797) Diagnoses Bipolar 1 disorder, manic, full remission F31.74
== END 2024-07-23 12:41 | disposition home or self-care (01) ==
LOC: HO.HOP 12:04
PROVIDERS: PCP Internal Medicine; Visit Provider Psychiatry & Neurology Psychiatry
DX: F31.74 Bipolar disorder, in full remission, most recent episode manic (principal)
CPT/HCPCS: 99214

== ENCOUNTER → 2024-07-24 13:45 | Outpatient (BNV) | payer OTHER, SELFPAY | PROVIDERS: PCP Internal Medicine; Visit Provider Internal Medicine | DX: Z12.31 Encounter for screening mammogram for malignant neoplasm of breast (principal) | CPT/HCPCS: 77063; 77067 ==

== ENCOUNTER 2024-07-24 13:52 | Outpatient (REF) | payer OTHER, SELFPAY | END 2024-07-24 13:53 | disposition home or self-care (01) | LOC: HO.MAMMO 13:52 | PROVIDERS: PCP Internal Medicine; Visit Provider Internal Medicine | DX: Z12.31 Encounter for screening mammogram for malignant neoplasm of breast (principal) | CPT/HCPCS: 77063; 77067 ==

== ENCOUNTER 2024-08-13 15:15 | Outpatient (AMB) | payer OTHER, SELFPAY ==
--- NOTE | 2024-08-13 15:19 | A.OFFVIS_ITS ---
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 She is doing well with no client services associate concerns. History of LS, using clobetasol intermittently for symptoms. Currently has no symptoms. Occasionally reports a little skin tag sensation in the lower right labia, not present today. Prior skin tag removals with Dr. Jennings. Currently not sexually active. Denies any vaginal dryness or irritation. Attempting to eat a healthy diet w/multivitamin, and stays active with exercise. Hysterectomy for fibroids. Last mammogram; 2024. Colonoscopy is UTD. Denies any family history of breast or ovarian. FH of colon cancer-father. [facility] Medical History Generalized anxiety disorder Alcohol use disorder, moderate, in sustained remission Bipolar 1 disorder, manic, full remission Obesity Fungal infection of foot Distinct protrusion of abdomen Surgical History H/O: hysterectomy History of esophagogastroduodenoscopy (EGD) H/O wisdom tooth extraction History of melanoma History of inguinal hernia Family History Father Afib Bipolar disorder Colon cancer Crohn disease Mother HTN (hypertension) Uterine cancer Dementia Other Mental health disorder Social History Housing: House Alcohol intake: former Patient Tobacco Use Status: Current everyday Tobacco user Cigarettes Per Day: 6 e-Cigarette/Vaping Use: Never Used service: No Current occupational status: unemployed Sexual orientation: Straight/Heterosexual Cognitive needs: No Hearing needs: No Vision needs: Yes Female Reproductive History Menstrual Menopause type: surgical Total pregnancies: 0 Date of last pap smear: 08/19/18 (neg pap and hpv) Date of Mammogram: 07/24/24 (Birad 1) Review of Systems Const All systems reviewed & are unremarkable except as noted in HPI and below Reports as per HPI Eyes Reports no additional complaints ENT Reports no additional complaints Card Reports no additional complaints Resp Reports no additional complaints GI Reports as per HPI and Reports no additional complaints Reports as per HPI Musc Reports no additional complaints Skin/Breast Reports as per HPI Neuro Reports no additional complaints Psych Reports no additional complaints Endo Reports no additional complaints Shreyas/Lymph Reports no additional complaints Aller/Immun Reports no additional complaints Physical Exam Vital Signs: Last Vital Signs BP 104/64 08/13/24 15:21 BMI result Body Mass Index 28.6 Const General: cooperative, healthy appearing, no acute distress, well developed and alert Orientation/consciousness: patient oriented x3 HEENT Head: Yes normal to inspection Eyes General: appearance normal, both eyes and all related structures Neck Neck: Yes normal visual inspection Thyroid: Thyroid normal Chest Chest palpation & inspection: normal inspection of the chest and other (no puckering, dimpling, peau de orange, retraction, discharge, masses) Breast/axilla inspection: normal inspection of the breasts Breast/axilla palpation: normal palpation of the breasts Resp Effort & Inspection: normal respiratory effort GI Inspection: Yes normal to inspection Palpation (GI): Soft to palpation Rectal Exam - Female: deferred Other: External: Scattered scarring, hypopigmentation labia minora, no lesions, no thickening no excoriations, no fissures. No skin tags. General: Yes bladder normal to palpation External Female Exam: normal external appearance and normal appearance of the urethra Speculum Exam - Vagina: normal appearance of the vagina, normal palpation and normal vaginal discharge Speculum Exam - Cervix: Cervix absent (Vaginal cuff no lesions or nodules) Bimanual exam- vagina & uterus: normal bimanual exam, normal palpation, bladder normal to palpation and uterus absent Bimanual Exam- Adnexa, other: no masses Skin General skin exam: no rashes or lesions noted Rashes: no rashes Neuro General: patient oriented x3 Cognition (Neuro): normal cognition Extrem General: Yes normal to inspection Psych Attitude: cooperative Thought process: Normal thought process present Assessment & Plan Assessment & Plan (1) Encounter for annual routine gynecological examination: Code(s): Z01.419 - Encounter for gynecological examination (general) (routine) without abnormal findings Category: Medical Plan Discussed: Current recommendations for pap smears per ASCCP guidelines. Breast awareness, periodic self breast exams and yearly mammogram. Maintain a healthy lifestyle, well balanced diet including Calcium 1,200 mg and Vitamin D 600 IU daily, and routine exercise. Reviewed use of medication for topical treatment of lichen sclerosus, signs to look for with skin changes, itching not resolving or any other concerns to follow up in the office sooner. Plan taper to lower potency corticosteroid and recheck the skin in 6 months. The patient expressed understanding and agreement with the plan of care. All of her questions and concerns were addressed to the best of my ability. RTO in 1 year for annual client services associate exam. This note is constructed using voice recognition software. While every effort has been made to ensure accuracy, auricular acupuncturist errors may have been included. Medications: New hydrocortisone valerate 0.2% apply a thin coat to area twice weekly at bedtime 1 appl topical .twice weekly 90 days 45 grams 2RF Coding Level of Care Code Est Pt Prev Care 40-64y(50424) Diagnoses Encounter for annual routine gynecological examination Z01.419
[2024-08-13 15:21] VITALS: BP 104/64; BMI 28.6
== END 2024-08-13 16:07 | disposition home or self-care (01) ==
LOC: HO.HWS 15:15
PROVIDERS: PCP Internal Medicine; Visit Provider Advanced Practice Midwife
DX: Z01.419 Encounter for gynecological examination (general) (routine) without abnormal findings (principal)
CPT/HCPCS: 99396; 99459

== ENCOUNTER → 2024-09-08 08:00 | Outpatient (RCR) | payer OTHER, SELFPAY ==
--- NOTE | 2020-05-17 19:53 | MHC.PT.EP ---
[facility] [place] Office [place] Office [place] Office [address] Thong Helms [address] [phone] F: [phone] F: [phone] F: [phone] F: [phone] Physical Therapy Plan of Care Date of Evaluation: 05/17/20 Date of Surgery: Diagnosis: Cervical pain Assessment: Pt is a 55 y/o female referred to PT for eval and treat of cervicalgia resulting in decreased tolerance for static postures, performing recreational activities, reading for duration, as well as chronic intermittent tension EPPS secondary to decreased cervical and scapular posture, increased R cervical accessory tissue tension, cervical weakness, mild asymmetry of cervical ROM, and pain. Pt is deemed an appropriate candidate to receive skilled PT in order to address her physical limitations to improve her functional ability. Frequency and Duration: The patient will be seen 2 x / wk x 4 wks. Short Term Goals: In 1 week: initiate HEP with evidence of compliance. In 3 weeks: improve TTP of R suboccipital attachments to 0, initial: 2+. Supervisor Shearing Goals: In 4 weeks: I with HEP. In 4 weeks: Pt will report able to read as much as she'd like w/o cervical pain. In 4 weeks: improve cervical rotation MMT B to > 4+/5; initial: 4/5. Treatment Plan: Modalities to reduce pain, spasms and effusion. Manual therapy to restore motion and function. Therapeutic exercise to improve strength and flexibility. Neuromuscular re-education for posture and balance. Therapeutic activities to return to functional activities of daily living. Electronically signed by: Pernell Levy PT. Please sign and return to therapist. Thank you for your referral.
== END | disposition home or self-care (01) ==
LOC: HO.PTCHIC 05-17 15:09
PROVIDERS: PCP Internal Medicine; Visit Provider Internal Medicine
DX: M54.2 Cervicalgia (principal)
CPT/HCPCS: 97014; 97110; 97140; 97161

== ENCOUNTER 2024-11-04 13:15 | Outpatient (AMB) | payer OTHER, SELFPAY ==
[2024-11-04 13:20] VITALS: BP 106/72; PULSE 77; O2SAT 97; BMI 27.9
--- NOTE | 2024-11-04 13:20 | A.OFFPC_ITS ---
Vital Signs 11/04/24 13:20 Height 5 ft 9 in Weight 189 lb BMI 27.9 BP 106/72 Blood Pressure Location Lt brachial Position Sitting Pulse 77 Pulse Source Pulse Oximeter Pulse Oximetry (%) 97 Oxygen Delivery Method Room Air Intake Visit Reasons: follow up Emr Implementation Specialist Required: No Allergies No Known Allergies (No Known Allergies*) Allergy (Verified 11/04/24 13:20) Medication List - Last Reconciled 11/04/24 by Ian Junior MD hydrocortisone valerate 0.2% 1 appl topical .twice weekly 90 days lamotrigine 200 mg PO DAILY lithium carbonate TAKE 1 TABLET BY MOUTH EVERY MORNING AND 2 TABLETS EACH EVENING omeprazole 20 mg PO DAILY 30 days Tobacco use date assessed: 11/04/24 Dental Screening Dental Screen Date: 11/04/24 Did you have a dental visit in the last 12 months?: Yes Did you have a dental problem in the last 6 months where you did not have access to dental care?: No Was dental information given to patient?: Patient has dentist HPI follow up HPI Details Subjective - The patient is a 59-year-old female pr esenting with anxiety and stress due to recent family health concerns. - The patient reports feeling overwhelme d due to the simultaneous illnesses of both parents. These feelings have been particularly intense as her mother was recently moved into assisted living, and her father is now living independently, which has affected his mental health. - Her father's memory has declined signi ficantly, requiring additional caregiving support. The patient is concerned about the need to hire extra aides for her mother. - Anxiety about her parents' deteriorati ng health situation began approximately two months ago and has progressed, contributing to increased stress and emotional exhaustion. - Recent family transitions have include d the necessity of seeking caregiving solutions due to her mother?s move to assisted living and ongoing management of her father?s Crohn?s disease, which complicates his living situation. - Other stress exacerbations include her mother's recent urinary infections and changes in care intensity, impacting the patient's daily routine. - The patient expresses concern that her psychiatrist is not currently aware of the extent of her current familial and emotional stress since the last visit was several months prior. - No recent adjustment in her psychiatri c treatment regimen, which currently includes lamotrigine and lithium. For her bipolar disorder Social History: - The patient does not currently have a therapist, as her previous therapist did not accept her insurance. - The patient is planning to consult her psychiatrist regarding medication for stress and anxiety in a couple of weeks. - Concerns about living arrangements and caregiving logistics for her parents, a s they cannot cohabit due to space constraints and differing care needs. Family History: - The patient's mother and father both h ave medical issues that require assisted living and additional caregiving. Stress The patient is experiencing significant stress due to ongoing caregiving responsibilities and health concerns of both parents. This stress manifests as feelings of being overwhelmed, tired, and anxious. Despite attempting to manage the situation with practical caregiving arrangements, the patient finds herself frequently in a state of emotional exhaustion. Coping mechanisms are limited due to the patient's current medication and lack of therapist support, leading to increased stress episodes, including near panic situations. Past Psychiatric History The patient has a history of bipolar disorder, currently managed with lamotrigine and lithium. She is under the care of a psychiatrist with check-ups approximately every three months. Family Psychiatric History Patient's father also suffers from bipolar disorder. Mental Health and Self Care The patient is actively seeking mental health support but is limited by her current insurance coverage, which prevented her from continuing with a preferred therapist. Despite seeing a psychiatrist, there appears to be a gap in addressing her newfound stressors adequately. She expresses the need for enhanced mental health support to manage her current psychological burden. Social/Emotional The patient's emotional state is characterized by substantial anxiety and stress due to caregiving roles and her parents' health conditions. She is experiencing difficulty in emotional regulation and reports episodes of overwhelming anxiety and exhaustion. These have not yet been effectively managed or stabilized with her current psychiatric treatment. Friends and Support The patient indicates limited social support through the inadequate current mental health care structure and is looking into additional support options. Family meetings, like those with her brother, are crucial but infrequent as family is spread out geographically. Counseling During the visit, the patient was advised to seek a psychiatrist?s evaluation f or possible medication adjustments to manage her anxiety better. The benefits of consulting supportive counselors were discussed, highlighting the importance of mental health care in mitigating stressors. Problem List - Anxiety disorder - Bipolar disorder - Stress related to familial caregiving responsibilities Patient Instructions - Discuss medication adjustments with a psychiatrist to manage anxiety effectively. - Seek additional support from a therapi st or support group if possible. - Make an appointment for a 30-minute se ssion when her brother from [place] can be present, enabling informed discussion about family care strategies. When she brings her mother over for follow-up appointment Assessment and Plan 1. Anxiety disorder The patient?s anxiety has intensified due to changes in family dynamics and caregiving needs. She is advised to consult with her psychiatrist regarding potential adjustments to her current medication regimen to include as-needed treatment for acute anxiety. Additionally, exploring therapeutic support may provide supplementary relief for her emotional wellbeing. 2. Bipolar disorder The current treatment regimen with lamotrigine and lithium remains effective in stabilizing the patient's mood. However, due to new stressors, it is crucial to reevaluate if additional measures are needed to manage her current anxiety. Ongoing monitoring with her psychiatrist is planned to assess the existing treatment's efficacy. 3. Stress related to familial caregiving responsibilities Addressing the patient?s stress involves potential adjustments in current caregiving strategies for her parents. The patient is encouraged to facilitate communication with her family to develop a more sustainable plan for their care, including ensuring proper documentation and management of legal proxy requirements. 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 Skin: Normal turgor psychiatry: Appears tired and anxious, answers appropriately, makes eye contact [facility] Medical History Generalized anxiety disorder Alcohol use disorder, moderate, in sustained remission Bipolar 1 disorder, manic, full remission Obesity Fungal infection of foot Distinct protrusion of abdomen Surgical History H/O: hysterectomy History of esophagogastroduodenoscopy (EGD) H/O wisdom tooth extraction History of melanoma History of inguinal hernia Family History Father Afib Bipolar disorder Colon cancer Crohn disease Mother HTN (hypertension) Uterine cancer Dementia Other Mental health disorder Social History Housing: House Alcohol intake: former Patient Tobacco Use Status: Current everyday Tobacco user Cigarettes Per Day: 6 e-Cigarette/Vaping Use: Never Used service: No Current occupational status: unemployed Sexual orientation: Straight/Heterosexual Cognitive needs: No Hearing needs: No Vision needs: Yes Questionnaire PHQ-9 Over the last 2 weeks, how often have you been bothered by any of the following problems? 1. Little interest or pleasure in doing things: not at all 2. Feeling down, depressed, or hopeless: not at all 3. Trouble falling or staying asleep, or sleeping too much: not at all 4. Feeling tired or having little energy: several days 5. Poor appetite or overeating: not at all 6. Feeling bad about yourself - or that you are a failure or have let yourself or your family down: not at all 7. Trouble concentrating on things, such as reading the newspaper or watching television: not at all 8. Moving or speaking so slowly that other people could have noticed. Or the opposite - being so fidgety or restless that you have been moving around a lot more than usual: not at all 9. Thoughts that you would be better off or of hurting yourself in some way: not at all Total score: 1 Depression Screening Interpretation: Negative Depression Screening Done: Yes 56328 - PHQ-9 Billing: Yes Source: Developed by Drs. Deondre Riley, Izabela Gtz, Yaw Bronson and colleagues, with an educational windy from [employer]. Thrive Questionnaire Date Thrive assessed: 11/04/24 I am a: Patient What is your living situation today?: I have a steady place to live Within the past 12 months, did the food you bought not last and you didn't have the money to get more?: Never true Within the past 12 months, did you worry whether your food would run out before you got money to buy more?: Never true Do you have trouble paying for medicines?: No Do you have trouble getting transportation to medical appointments?: No Do you have trouble paying your heating and electricity bill?: No Do you have trouble taking care of your child, family member or friend?: No Do you have trouble with day-to-day activities such as bathing, preparing meals, shopping, managing finances, etc.?: No Are you currently unemployed and looking for a job?: No Are you interested in more education?: No Please select the resources that you would like help with: Care for elder or disabled Currently or been in a relationship where the following occur: I choose not to answer THRIVE Score: 0 AUDIT C Alcohol Use Questionnaire (AUDIT-C) 1. How often do you have a drink containing alcohol?: Never 3. How often do you have six or more drinks on one occasion?: Never Total Score: 0 Score Reviewed/Action Taken: Yes MAICOL-7 AMB Questionnaire MAICOL-7 Date MAICOL - 7 assessed: 11/04/24 Feeling nervous, anxious, or on edge: 1 = Several days Not being able to stop or control worryin = Not at all Worrying too much about different things: 0 = Not at all Trouble relaxin = Not at all Being so restless that it is hard to sit still: 0 = Not at all Becoming easily annoyed or irritable: 1 = Several days Feeling afraid as if something awful might happen: 0 = Not at all Total MAICOL-7 score (0-4 normal; 5-9 mild; 10-14 moderate; 15-21 severe): 2 Source: Developed by Drs. Deondre Riley, Izabela Gtz, Yaw Bronson and colleagues, with an educational windy from [employer]. MAICOL-7 Assessment Billing MAICOL-7 Assessment Tool: MAICOL-7 Assessment 52183 Physical exam (Primary Care) Vital Signs: Last Vital Signs Pulse 77 11/04/24 13:20 BP 106/72 11/04/24 13:20 Pulse Ox 97 11/04/24 13:20 Oxygen Delivery Method Room Air 11/04/24 13:20 BMI result Body Mass Index 27.9 Tobacco/Smoking Status: Tobacco use Status Tobacco use date assessed 11/04/24 11/04/24 13:24 Patient Tobacco Use Status Current everyday Tobacco 11/04/24 13:24 e-Cigarette/Vaping Use Never Used 11/04/24 13:24 PHQ-9: PHQ-9 Score PHQ-9: Total score 1 11/04/24 15:17 Depression Screening Interpretation: Negative Thrive Assessment: Date of Thrive Assessment Date Thrive assessed 11/04/24 11/04/24 13:24 Currently or been in a relationship where the following occur: I choose not to answer Coding Level of Care Code Est Pt Level 4 (18994) Diagnoses Bipolar 1 disorder, manic, full remission F31.74 Generalized anxiety disorder F41.1 Stress due to illness of family member Z63.79 Panic attacks F41.0 Additional Codes MAICOL-7 Assessment Billing - MAICOL-7 Assessment Tool: MAICOL-7 Assessment 78018 ([id number]) PHQ-9 - 25829 - PHQ-9 Billing: Yes ([id number]) Time Spent (min) 30 Comment [id number] discussing with the patient/coordination of care Assessment & Plan Assessment & Plan (1) Bipolar 1 disorder, manic, full remission: Code(s): F31.74 - Bipolar disorder, in full remission, most recent episode manic Category: Medical (2) Generalized anxiety disorder: Code(s): F41.1 - Generalized anxiety disorder Category: Medical (3) Stress due to illness of family member: Code(s): Z63.79 - Other stressful life events affecting family and household Category: Social Hx (4) Panic attacks: Code(s): F41.0 - Panic disorder [episodic paroxysmal anxiety] Category: Medical Plan Subjective - The patient is a 59-year-old female presenting with anxiety and stress due to recent family health concerns. - The patient reports feeling overwhelmed due to the simultaneous illnesses of both parents. These feelings have been particularly intense as her mother was recently moved into assisted living, and her father is now living independently, which has affected his mental health. - Her father's memory has declined significantly, requiring additional [facility] support. The patient is concerned about the need to hire extra aides for her mother. - Anxiety about her parents' deteriorating health situation began approximately two months ago and has progressed, contributing to increased stress and emotional exhaustion. - Recent family transitions have included the necessity of seeking caregiving solutions due to her mother?s move to assisted living and ongoing management of her father?s Crohn?s disease, which complicates his living situation. - Other stress exacerbations include her mother's recent urinary infections and changes in care intensity, impacting the patient's daily routine. - The patient expresses concern that her psychiatrist is not currently aware of the extent of her current familial and emotional stress since the last visit was several months prior. - No recent adjustment in her psychiatric treatment regimen, which currently includes lamotrigine and lithium. For her bipolar disorder Social History: - The patient does not currently have a therapist, as her previous therapist did not accept her insurance. - The patient is planning to consult her psychiatrist regarding medication for stress and anxiety in a couple of weeks. - Concerns about living arrangements and caregiving logistics for her parents, as they cannot cohabit due to space constraints and differing care needs. Family History: - The patient's mother and father both have medical issues that require assisted living and additional caregiving. Stress The patient is experiencing significant stress due to ongoing caregiving responsibilities and health concerns of both parents. This stress manifests as feelings of being overwhelmed, tired, and anxious. Despite attempting to manage the situation with practical caregiving arrangements, the patient finds herself frequently in a state of emotional exhaustion. Coping mechanisms are limited due to the patient's current medication and lack of therapist support, leading to increased stress episodes, including near panic situations. Past Psychiatric History The patient has a history of bipolar disorder, currently managed with lamotrigine and lithium. She is under the care of a psychiatrist with check-ups approximately every three months. Family Psychiatric History Patient's father also suffers from bipolar disorder. Mental Health and Self Care The patient is actively seeking mental health support but is limited by her current insurance coverage, which prevented her from continuing with a preferred therapist. Despite seeing a psychiatrist, there appears to be a gap in addressing her newfound stressors adequately. She expresses the need for enhanced mental health support to manage her current psychological burden. Social/Emotional The patient's emotional state is characterized by substantial anxiety and stress due to caregiving roles and her parents' health conditions. She is experiencing difficulty in emotional regulation and reports episodes of overwhelming anxiety and exhaustion. These have not yet been effectively managed or stabilized with her current psychiatric treatment. Friends and Support The patient indicates limited social support through the inadequate current mental health care structure and is looking into additional support options. Family meetings, like those with her brother, are crucial but infrequent as family is spread out geographically. Counseling During the visit, the patient was advised to seek a psychiatrist?s evaluation for possible medication adjustments to manage her anxiety better. The benefits of consulting supportive counselors were discussed, highlighting the importance of mental health care in mitigating stressors. Problem List - Anxiety disorder - Bipolar disorder - Stress related to familial caregiving responsibilities Patient Instructions - Discuss medication adjustments with a psychiatrist to manage anxiety effectively. - Seek additional support from a therapist or support group if possible. - Make an appointment for a 30-minute session when her brother from [place] can be present, enabling informed discussion about family care strategies. When she brings her mother over for follow-up appointment Assessment and Plan 1. Anxiety disorder The patient?s anxiety has intensified due to changes in family dynamics and caregiving needs. She is advised to consult with her psychiatrist regarding potential adjustments to her current medication regimen to include as-needed treatment for acute anxiety. Additionally, exploring therapeutic support may provide supplementary relief for her emotional wellbeing. 2. Bipolar disorder The current treatment regimen with lamotrigine and lithium remains effective in stabilizing the patient's mood. However, due to new stressors, it is crucial to reevaluate if additional measures are needed to manage her current anxiety. Ongoing monitoring with her psychiatrist is planned to assess the existing treatment's efficacy. 3. Stress related to familial caregiving responsibilities Addressing the patient?s stress involves potential adjustments in current caregiving strategies for her parents. The patient is encouraged to facilitate communication with her family to develop a more sustainable plan for their care, including ensuring proper documentation and management of legal proxy requirements.
== END 2024-11-04 13:52 | disposition home or self-care (01) ==
LOC: HO.HMCC 13:16
PROVIDERS: PCP Internal Medicine; Visit Provider Internal Medicine
DX: F31.74 Bipolar disorder, in full remission, most recent episode manic (principal); F41.1 Generalized anxiety disorder; Z63.79 Other stressful life events affecting family and household; F41.0 Panic disorder [episodic paroxysmal anxiety]

== ENCOUNTER → 2024-11-04 13:15 | Outpatient (BNVA) | payer OTHER, SELFPAY | PROVIDERS: PCP Internal Medicine; Visit Provider Internal Medicine | DX: F41.1 Generalized anxiety disorder (principal); F31.74 Bipolar disorder, in full remission, most recent episode manic; F41.0 Panic disorder [episodic paroxysmal anxiety]; Z63.6 Dependent relative needing care at home; Z63.79 Other stressful life events affecting family and household | CPT/HCPCS: 96127 ==

== ENCOUNTER 2024-11-25 12:07 | Outpatient (REF) | payer OTHER, SELFPAY ==
[2024-11-25 14:07] LABS: Lithium 0.78 mmol/L (0.60-1.20)
[2024-11-25 14:16] LABS: Alanine Aminotransferase 22 U/L (0-31); Albumin Level 4.6 g/dL (3.5-5.0); Alkaline Phosphatase 57 U/L (39-117); Anion Gap 10 (12-20); Aspartate Amino Transferase 22 U/L (5-31); Blood Urea Nitrogen 12 mg/dL (9-16); Calcium 9.9 mg/dL (8.4-10.2); Carbon Dioxide 25 mmol/L (22-29); Chloride 110 mmol/L (96-108); Cholesterol 222 mg/dL (<200); Estimated Glomerular Filt Rate > 60; HDL Cholesterol 58 mg/dL (>40); Potassium 4.2 mmol/L (3.3-5.1); Sodium 141 mmol/L (135-145); Total Protein 7.0 g/dL (6.5-8.0); Triglycerides 145 mg/dL (<150)
[2024-11-30 14:27] LABS: Lamotrigine Lamictal 2.8 mcg/mL (2.5-15.0)
== END 2024-11-25 12:08 | disposition home or self-care (01) ==
LOC: HO.HMGCLDS 12:07
PROVIDERS: PCP Internal Medicine; Visit Provider Psychiatry & Neurology Psychiatry
DX: F31.74 Bipolar disorder, in full remission, most recent episode manic (principal); F17.200 Nicotine dependence, unspecified, uncomplicated
CPT/HCPCS: 36415; 80053; 80061; 80175; 80178; 84443

== ENCOUNTER 2024-11-30 13:40 | Outpatient (AMB) | payer OTHER, SELFPAY ==
--- NOTE | 2024-11-30 13:46 | MHC.OFFVISPS ---
Intake Intake Visit Reasons: depression Allergies No Known Allergies (No Known Allergies*) Allergy (Verified 11/04/24 13:20) HPI- Psychiatric Chief Complaint: depression HPI Narrative: Pt seen in f/u step mother now in assisted living has worsening parkinsons dementia father now living alone has been under inc stress patient generally stable on current regimen. Some periods of feeling overwhelmed and lack of time for herself Past Psychiatric History: hx bipolar dx alcohol use disorder Mental Status Exam Mental Status Exam Narrative: Mental Status Exam Narrative: Appearance: Casually dressed Behavior: Cooperative appropriate psychomotor: Within normal limits Speech: Normal volume and prosody Thought proccess logical and goal-directed Thought content: Future oriented appropriate concerns about her father and stepmother Mood: generally ok some anxiety Affect: Full affect SI:denies HI:denies VH/AH:none Delusions: None Insight/judgment: Good insight and judgment Memory/cog: Intact Assessment and Plan Assessment & Plan (1) Bipolar 1 disorder, manic, full remission: Status: Acute Code(s): F31.74 - Bipolar disorder, in full remission, most recent episode manic (2) Generalized anxiety disorder: Status: Acute Code(s): F41.1 - Generalized anxiety disorder (3) Alcohol use disorder, moderate, in sustained remission: Status: Acute Code(s): F10.21 - Alcohol dependence, in remission Plan plan of care encourage patient getting help with managing group home Counseling and coordination of Care Diagnosis and Prognosis Counseling: Adequacy of current interventions Details-Diagnosis/Prognosis counseling: Check labs encourage sobriety encourage regular excise encourage urged social engagement Details: I spent [] minutes reviewing the record, seeing the patient and documenting in the medical record. Counseling provided to the patient/caregiver as outlined below. Addressed patient/caregiver concerns regarding current medication regime including effective adherence. Addressed patient/caregiver concerns regarding diagnosis and prognosis including accuracy of diagnosis, prognosis over time, impact of diagnosis. Addressed patient/caregiver concerns regarding impact of recent stressors. PFSH Medical History Generalized anxiety disorder Alcohol use disorder, moderate, in sustained remission Bipolar 1 disorder, manic, full remission Obesity Fungal infection of foot Distinct protrusion of abdomen Surgical History H/O: hysterectomy History of esophagogastroduodenoscopy (EGD) H/O wisdom tooth extraction History of melanoma History of inguinal hernia Family History Father Afib Bipolar disorder Colon cancer Crohn disease Mother HTN (hypertension) Uterine cancer Dementia Other Mental health disorder Social History Housing: House Alcohol intake: former Patient Tobacco Use Status: Current everyday Tobacco user Cigarettes Per Day: 6 e-Cigarette/Vaping Use: Never Used service: No Current occupational status: unemployed Sexual orientation: Straight/Heterosexual Cognitive needs: No Hearing needs: No Vision needs: Yes Social History: only child mother never no children evangelical Substance History: alcohol use dx severe in past Trauma History: angry bipolar father in past Coding Level of Care Code Est Pt Level 3 (41983) Therapy 30m w/E&M (84310) Diagnoses Bipolar 1 disorder, manic, full remission F31.74 Generalized anxiety disorder F41.1 Alcohol use disorder, moderate, in sustained remission F10.21
== END 2024-11-30 15:13 | disposition home or self-care (01) ==
LOC: HO.HOP 13:40
PROVIDERS: PCP Internal Medicine; Visit Provider Psychiatry & Neurology Psychiatry
DX: F31.74 Bipolar disorder, in full remission, most recent episode manic (principal); F41.1 Generalized anxiety disorder; F10.21 Alcohol dependence, in remission
CPT/HCPCS: 90833; 99213

== ENCOUNTER 2025-01-29 14:18 | Outpatient (AMB) | payer OTHER, SELFPAY ==
--- NOTE | 2025-01-29 14:20 | A.OFFPC_ITS ---
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 Accompanied by: Self / Same As Patient Allergies No Known Allergies (No Known Allergies*) Allergy (Verified 01/29/25 14:23) Medication List - Last Reconciled 01/29/25 by Ian Junior MD hydrocortisone valerate 0.2% 1 appl topical .twice weekly 90 days lamotrigine 200 mg PO DAILY lithium carbonate TAKE 1 TABLET BY MOUTH EVERY MORNING AND 2 TABLETS EACH EVENING omeprazole 20 mg PO DAILY 30 days Tobacco use date assessed: 11/04/24 Dental Screening Dental Screen Date: 11/04/24 HPI orthotics/feet health HPI Details History of Present Illness The patient is a 59-year-old female presenting with a need for orthotics replacement. Replacement of Orthotics: - Reports current orthotics are signific antly worn down. - Initially diagnosed at [facility] for f gaby arches and received full orthotics for arch support. - history of plantar fasciitis, but den ies current pain resembling plantar fasciitis. - Orthotics were used to manage arch sup port but are now in need of renewal due to wear and tear. - She uses them in all her shoes, transf erring a single pair between shoes. - Requires custom-made orthotics for l [facility] support. Problem List - Chronic plantar fasciitis - Need for custom orthotics replacement Plan - Provide a script for custom-made ortho tics. - The patient will investigate [facility] and requirements for sending the prescription. Review of Systems Negative except HPI Physical Exam General: No acute distress HEENT: No acute findings Neck: Supple Respiratory system: Able to talk in full sentences, no audible wheeze Gastrointestinal: No pain Foot: Tender arches HEALTH INFORMATION MANAGERS: Alert awake oriented x3 motor intact Skin: Normal turgor [facility] Medical History Generalized anxiety disorder Alcohol use disorder, moderate, in sustained remission Bipolar 1 disorder, manic, full remission Obesity Fungal infection of foot Distinct protrusion of abdomen Surgical History H/O: hysterectomy History of esophagogastroduodenoscopy (EGD) H/O wisdom tooth extraction History of melanoma History of inguinal hernia Family History Father Afib Bipolar disorder Colon cancer Crohn disease Mother HTN (hypertension) Uterine cancer Dementia Other Mental health disorder Social History Housing: House Alcohol intake: former Patient Tobacco Use Status: Current everyday Tobacco user Cigarettes Per Day: 6 e-Cigarette/Vaping Use: Never Used service: No Current occupational status: unemployed Sexual orientation: Straight/Heterosexual Cognitive needs: No Hearing needs: No Vision needs: Yes Questionnaire PHQ-9 Over the last 2 weeks, how often have you been bothered by any of the following problems? 1. Little interest or pleasure in doing things: not at all 2. Feeling down, depressed, or hopeless: not at all 3. Trouble falling or staying asleep, or sleeping too much: not at all 4. Feeling tired or having little energy: several days 5. Poor appetite or overeating: not at all 6. Feeling bad about yourself - or that you are a failure or have let yourself or your family down: not at all 7. Trouble concentrating on things, such as reading the newspaper or watching television: not at all 8. Moving or speaking so slowly that other people could have noticed. Or the opposite - being so fidgety or restless that you have been moving around a lot more than usual: not at all 9. Thoughts that you would be better off or of hurting yourself in some way: not at all Total score: 1 Depression Screening Interpretation: Negative Depression Screening Done: Yes 26216 - PHQ-9 Billing: Yes Source: Developed by Drs. Deondre Riley, Izabela Gtz, Yaw Bronson and colleagues, with an educational windy from [employer]. Thrive Questionnaire Date Thrive assessed: 11/04/24 I am a: Patient What is your living situation today?: I have a steady place to live Within the past 12 months, did the food you bought not last and you didn't have the money to get more?: Never true Within the past 12 months, did you worry whether your food would run out before you got money to buy more?: Never true Do you have trouble paying for medicines?: No Do you have trouble getting transportation to medical appointments?: No Do you have trouble paying your heating and electricity bill?: No Do you have trouble taking care of your child, family member or friend?: No Do you have trouble with day-to-day activities such as bathing, preparing meals, shopping, managing finances, etc.?: No Are you currently unemployed and looking for a job?: No Are you interested in more education?: No Please select the resources that you would like help with: Care for elder or disabled Currently or been in a relationship where the following occur: I choose not to answer THRIVE Score: 0 MAICOL-7 AMB Questionnaire MAICOL-7 Date MAICOL - 7 assessed: 11/04/24 Source: Developed by Drs. Deondre Riley, Izabela Gtz, Yaw Bronson and colleagues, with an educational windy from [employer]. Physical exam (Primary Care) Vital Signs: Last Vital Signs Pulse 73 01/29/25 14:23 BP 110/70 01/29/25 14:23 Pulse Ox 97 01/29/25 14:23 BMI result Body Mass Index 28.5 Tobacco/Smoking Status: Tobacco use Status Tobacco use date assessed 11/04/24 01/29/25 14:20 Patient Tobacco Use Status Current everyday Tobacco 01/29/25 14:20 e-Cigarette/Vaping Use Never Used 01/29/25 14:20 PHQ-9: PHQ-9 Score PHQ-9: Total score 1 01/29/25 14:34 Depression Screening Interpretation: Negative Thrive Assessment: Date of Thrive Assessment Date Thrive assessed 11/04/24 01/29/25 14:20 Currently or been in a relationship where the following occur: I choose not to answer Coding Level of Care Code Est Pt Level 3 (21705) Diagnoses Plantar fasciitis, bilateral M72.2 Additional Codes PHQ-9 - 77941 - PHQ-9 Billing: Yes ([id number]) Assessment & Plan Assessment & Plan (1) Plantar fasciitis, bilateral: Code(s): M72.2 - Plantar fascial fibromatosis Category: Medical Plan History of Present Illness The patient is a 59-year-old female presenting with a need for orthotics replacement. Replacement of Orthotics: - Reports current orthotics are significantly worn down. - Initially diagnosed at [facility] for fallen arches and received full orthotics for arch support. - history of plantar fasciitis, but denies current pain resembling plantar fasciitis. - Orthotics were used to manage arch support but are now in need of renewal due to wear and tear. - She uses them in all her shoes, transferring a single pair between shoes. - Requires custom-made orthotics for l arch support. Problem List - Chronic plantar fasciitis - Need for custom orthotics replacement Plan - Provide a script for custom-made orthotics. - The patient will investigate the specific location and requirements for sending the prescription. Medications: New [Custom-made orthotic arch support] As directed 1 ea 0RF M72.2 - Plantar fascial fibromatosis
[2025-01-29 14:23] VITALS: BP 110/70; PULSE 73; O2SAT 97; BMI 28.5
== END 2025-01-29 14:54 | disposition home or self-care (01) ==
LOC: HO.HMCC 14:19
PROVIDERS: PCP Internal Medicine; Visit Provider Internal Medicine
DX: M72.2 Plantar fascial fibromatosis (principal)

== ENCOUNTER → 2025-01-29 14:18 | Outpatient (BNVA) | payer OTHER, SELFPAY | PROVIDERS: PCP Internal Medicine; Visit Provider Internal Medicine | DX: M72.2 Plantar fascial fibromatosis (principal); Z13.31 Encounter for screening for depression | CPT/HCPCS: 96127 ==

== ENCOUNTER 2025-02-09 14:47 | Outpatient (AMB) | payer OTHER, SELFPAY ==
--- NOTE | 2025-02-09 14:58 | MHC.OFFVIS ---
Intake Visit Reasons: 6 month Skin Check Elder Counselor: Elder Counselor Present (Lyly) Allergies No Known Allergies (No Known Allergies*) Allergy (Verified 02/09/25 14:59) Is last menstrual period known: Yes HPI Comments Details: Patient is here today for a follow up on her lichen sclerosus. She admits to not using the cream due to not having any symptoms. Uses Cetaphil soap and a nontoxic wipe when needed. Currently not sexually active. She has no other concerns. [facility] Medical History (Updated 02/09/25 @ 19:53 by Agnes Stephens CNM) Generalized anxiety disorder Alcohol use disorder, moderate, in sustained remission Bipolar 1 disorder, manic, full remission Obesity Fungal infection of foot Distinct protrusion of abdomen Surgical History H/O: hysterectomy History of esophagogastroduodenoscopy (EGD) H/O wisdom tooth extraction History of melanoma History of inguinal hernia Family History Father Afib Bipolar disorder Colon cancer Crohn disease Mother HTN (hypertension) Uterine cancer Dementia Other Mental health disorder Social History Housing: House Alcohol intake: former Patient Tobacco Use Status: Current everyday Tobacco user Cigarettes Per Day: 6 e-Cigarette/Vaping Use: Never Used service: No Current occupational status: unemployed Sexual orientation: Straight/Heterosexual Cognitive needs: No Hearing needs: No Vision needs: Yes Review of Systems Const All systems reviewed & are unremarkable except as noted in HPI and below Endo Reports no additional complaints Physical Exam Const General: cooperative, healthy appearing and no acute distress External Female Exam: normal external appearance ( mild hypopigmentation) and other (Vulvar walsh hemangiomas) Psych Appearance: well kempt Attitude: cooperative Thought process: Normal thought process present Assessment & Plan Assessment & Plan (1) Lichen sclerosus: Code(s): L90.0 - Lichen sclerosus et atrophicus Category: Medical Plan Discussed treatment for LS, use cream sporadically, has full tube on hand and will call if she needs a refill before her follow up appointment. Advised no indication for shaving. Continue use of mild soap. Follow up PRN. The patient expressed understanding and agreement with the plan of care. All of her questions and concerns were addressed to the best of my ability. This note is constructed using voice recognition software. While every effort has been made to ensure accuracy, performance improvement coordinator errors may have been included. Coding Level of Care Code Est Pt Level 3 (95086) Diagnoses Lichen sclerosus L90.0
== END 2025-02-09 15:23 | disposition home or self-care (01) ==
LOC: HO.HWS 14:47
PROVIDERS: PCP Internal Medicine; Visit Provider Advanced Practice Midwife
DX: L90.0 Lichen sclerosus et atrophicus (principal)
CPT/HCPCS: 99213

== ENCOUNTER 2025-02-16 14:37 | Outpatient (AMB) | payer OTHER, SELFPAY ==
--- NOTE | 2025-02-16 14:49 | MHC.OFFVISPS ---
Intake Intake Visit Reasons: Bipolar disorder in remission Allergies No Known Allergies (No Known Allergies*) Allergy (Verified 02/09/25 14:59) HPI- Psychiatric Chief Complaint: Bipolar disorder in remission HPI Narrative: The patient attended the psychiatric appointment in relationship to management of bipolar disorder and the stress of the ongoing care and management of the patient's father, who has been diagnosed with Alzheimer's and is experiencing memory decline. The patient stated that their father has been experiencing significant memory decline, particularly in the past five months. The patient noted that the father has lost the ability to use his pill pack correctly, taking multiple doses at once. The patient has taken on the responsibility of administering the father's night medication personally. The patient also mentioned that the father's psychiatrist and neurologist are involved in his care. The patient is attending a caregiver support program and workshops to manage the caregiving responsibilities more effectively. The patient is also adjusting to a new routine after returning to their own home after staying with the father for several months. Of note the patient also took care of her other in the last couple of years her life when she was dealing with end-stage cancer Patient remains sober history of significant alcohol use particularly in the past when manic and has been quite stable on a combination of lithium and Lamictal. She does at times 12 on time that she missed in the past when she was living in and had and not stabilized as she is presently. The patient did not mention any new allergies or physical symptoms. The patient is currently taking Lamictal, Seroquel, and Omeprazole, and has not introduced any new medications. The patient has a family history of breast cancer and expressed concern over an upcoming mammogram follow-up, although this was not the primary focus of the visit. Past Psychiatric History: hx bipolar dx alcohol use disorder Mental Status Exam Mental Status Exam Narrative: Mental Status Exam Narrative: Appearance: Casually dressed Behavior: Cooperative appropriate psychomotor: Within normal limits Speech: Normal volume and prosody Thought proccess logical and goal-directed Thought content: Future oriented appropriate concerns about her father and stepmother and although overwhelming at times feels that she is doing the right thing. Mood: generally ok some anxiety Affect: Full affect SI:denies HI:denies VH/AH:none Delusions: None Insight/judgment: Good insight and judgment Memory/cog: Intact Results Reviewed Results Reviewed: RUN: 03/07/252053 PAGE 1 [facility] [address] [place] [id number] Domain Architect: Diony Willard M.D. Specimen Inquiry Name: Nayana Metz Age/Sex: 59/F : 1965 Unit#: [id number] Attend Dr: Lg Espinoza MD Re11/25/24 Status: DEP REF Location: [facility] Disch: SPEC : [id number] SANDEEP: 11/25/24 STATUS: COMP REQ : [id number] RECD: 11/25/[address]: Lg Espinoza MD COMP: 11/25/24 ENTERED: 11/25/24-[address]: Ian Junior MD ORDERED: CMP, Lipid Panel, TSH Rflx Test Result Flag Reference Sodium 141 135-145 mmol/L Potassium 4.2 3.3-5.1 mmol/L CL 110 H 96-108 mmol/L CO2 25 22-29 mmol/L Gap 10 L 12-20 BUN 12 9-16 mg/dL Creat 0.87 0.5-1.4 mg/dL eGFR > 60 Chronic Kidney Disease: Estimated GFR < 60 mL/min/1.73m2 Severe Kidney Disease: Estimated GFR < 15 mL/min/1.73m2 Glucose, Random 100 60-115 mg/dL CA 9.9 8.4-10.2 mg/dL Total Bili 0.4 0.0-1.0 mg/dL AST (GOT) 22 5-31 U/L ALT (GPT) 22 0-31 U/L Protein, Total 7.0 6.5-8.0 g/dL Alb 4.6 3.5-5.0 g/dL Triglyceride 145 <150 mg/dL Desirable Triglyceride: less than 150 mg/dL Borderline High Triglyceride 150-199 mg/dL High Triglyceride: 200-499 mg/dL Very High Triglyceride: greater than or equal to 5OO mg/dL Cholesterol 222 H <200 mg/dL Desirable Cholesterol: less than 200 mg/dL Borderline High Cholesterol: 200-239 mg/dL High Cholesterol: greater than 239 mg/dL LDL Calculated 135 H <100 mg/dL Desirable LDL: less than 100 mg/dL Near Optimal/Above Optimal LDL: 110-129 mg/dL Borderline High LDL: 130-159 mg/dL High LDL: 160-189 mg/dL Very High LDL: greater than or equal to 190 mg/dL HDL 58 >40 mg/dL Desirable HDL: greater than 40 mg/dL Note: This HDL assay may give artificially low results in patients with liver disease. Alk Phos 57 39-117 U/L TSH 2.23 0.32-4.0 uIU/mL END OF REPORT Name: Nayana Metz Age/Sex: 59/F : 1965 Unit#: [id number] Attend Dr: Lg Espinoza MD Re11/25/24 Status: DEP REF Location: [facility] Disch: SPEC : [id number] SANDEEP: 11/25/24 STATUS: COMP REQ : [id number] RECD: 11/25/[address]: Lg Espinoza MD COMP: 11/25/24 ENTERED: 11/25/24-[address]: Ian Junior MD ORDERED: Lith Test Result Flag Reference [place] 0.78 0.60-1.20 mmol/L END OF REPORT Assessment and Plan Assessment & Plan (1) Bipolar affective disorder in remission: Code(s): F31.70 - Bipolar disorder, currently in remission, most recent episode unspecified Assessment and Plan: Labs reviewed with patient remains stable on a combination of Lamictal and lithium. [place] level 0.78. Patient kidney thyroid appear unchanged within normal limits mild elevation LDL noted. Check UA for protein and whether patient is developing any difficulty in concentrating her urine. Mood quite despite significant pressure remains sober. Active in the taoism. I connected with her father and has been a family consumer scientist in ongoing Chong appears okay with this we discussed different strategies. No cycling noted by patient no adverse effects from medication. Continue plan of care follow-up 3-4 months (2) Generalized anxiety disorder: Status: Acute Code(s): F41.1 - Generalized anxiety disorder Medications: Changed From lithium carbonate TAKE 1 TABLET BY MOUTH EVERY MORNING AND 2 TABLETS EACH EVENING 270 tabs 1RF To lithium carbonate TAKE 1 TABLET BY MOUTH EVERY MORNING AND 2 TABLETS EACH EVENING 270 tabs 1RF Orders: Orders UA and rflx microscopic 02/16/25 F41.1 - Generalized anxiety disorder, F41.0 - Panic disorder [episodic paroxysmal anxiety], Z79.899 - Other senior care (current) drug therapy Counseling and coordination of Care Details-Self Mgmt counseling: Issues related to management of father and stepfather with dementia Medication management counseling: Effectiveness and Side effects Details: I spent [47] minutes reviewing the record, seeing the patient and documenting in the medical record. Counseling provided to the patient/caregiver as outlined below. Addressed patient/caregiver concerns regarding current medication regime including effective adherence. Addressed patient/caregiver concerns regarding diagnosis and prognosis including accuracy of diagnosis, prognosis over time, impact of diagnosis. Addressed patient/caregiver concerns regarding impact of recent stressors. [facility] Medical History Generalized anxiety disorder Alcohol use disorder, moderate, in sustained remission Bipolar 1 disorder, manic, full remission Obesity Fungal infection of foot Distinct protrusion of abdomen Surgical History H/O: hysterectomy History of esophagogastroduodenoscopy (EGD) H/O wisdom tooth extraction History of melanoma History of inguinal hernia Family History Father Afib Bipolar disorder Colon cancer Crohn disease Mother HTN (hypertension) Uterine cancer Dementia Other Mental health disorder Social History Housing: House Alcohol intake: former Patient Tobacco Use Status: Current everyday Tobacco user Cigarettes Per Day: 6 e-Cigarette/Vaping Use: Never Used service: No Current occupational status: unemployed Sexual orientation: Straight/Heterosexual Cognitive needs: No Hearing needs: No Vision needs: Yes Social History: only child mother never no children 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
== END 2025-02-16 15:23 | disposition home or self-care (01) ==
LOC: HO.HOP 14:37
PROVIDERS: PCP Internal Medicine; Visit Provider Psychiatry & Neurology Psychiatry
DX: F31.70 Bipolar disorder, currently in remission, most recent episode unspecified (principal); F41.1 Generalized anxiety disorder
CPT/HCPCS: 90833; 99213

== ENCOUNTER 2025-02-16 14:37 | Outpatient (REF) | payer OTHER, SELFPAY ==
[2025-02-16 16:13] LABS: Appearance Urine Clear; Glucose Urine UA Negative (Negative); PH 8.0 (5.0-9.0); Specific Gravity - Urine 1.010 (1.005-1.025)
== END 2025-02-16 14:38 | disposition home or self-care (01) ==
LOC: HO.LAB 14:37
PROVIDERS: PCP Internal Medicine; Visit Provider Psychiatry & Neurology Psychiatry
DX: F41.1 Generalized anxiety disorder (principal); F41.0 Panic disorder [episodic paroxysmal anxiety]; F31.70 Bipolar disorder, currently in remission, most recent episode unspecified; Z79.899 Other long term (current) drug therapy
CPT/HCPCS: 81003